=== PATIENT | female | born 1935 | race Caucasian/White ===

== ENCOUNTER 2017-08-07 09:30 | Inpatient (IN) | payer OTHER ==
[~2017-08-07] VITALS: Ht 162.6 cm; Wt 67.7 kg
[~2017-08-07 09:30] MED LIST: CALCIUM CARBON600 M1 PO; CYCLOBENZAPRINE10 M1 PO; ESCITALOPRAM OX20 MG PO; LEVSIN0.125 M1 PO; LOPRESSOR50 M1 PO; METFORMIN HCL500 M2 PO; MIRTAZAPINE45 M1 PO; MULTIVITAMIN1 TAB PO; PRINIVIL10 M1 PO; PROTONIX40 M3 PO; QVAR8.7 G1 INH; SIMVASTATIN20 M2 PO; VIMOVO DR 500-1 EACH PO
[2017-08-07 10:37] LABS: ABSOLUTE BASOPHIL COUNT 0 /CUMM (0.0-0.2); ABSOLUTE EOSINOPHIL COUNT 0.2 /CUMM (0.0-0.7); ABSOLUTE GRANULOCYTE CT 7.8 /CUMM (1.4-6.5); ABSOLUTE MONOCYTE COUNT 0.7 /CUMM (0.10-0.60); BASOPHIL % 0.4 % (0.0-2.0); EOSINOPHIL % 1.4 % (0-5); GRANULOCYTE % 72.3 % (42.2-75.2); HEMATOCRIT 40.4 % (37-47); MEAN CORPUSCULAR HGB 31.1 PG (27.0-31.0); MEAN CORPUSCULAR HGB CONC 32.9 G/DL (33.0-37.0); MEAN CORPUSCULAR VOLUME 94.5 FL (81.0-99.0); MEAN PLATELET VOLUME 7.4 FL (7.4-10.4); PLATELET COUNT 386 /CUMM (130-400); RBC DISTRIBUTION WIDTH 13.9 % (11.5-14.5); RED BLOOD CELL CT 4.28 /CUMM (4.20-5.40); WHITE BLOOD CELL COUNT 10.8 /CUMM (4.8-10.8)
--- NOTE | 2017-08-07 12:12 | ED AMS/SEIZURE/WEAK/DIZZY ---
History of Present Illness General Chief Complaint: General Adult Stated Complaint: WEAKNESS XS 3 WEEKS Source: patient, family Exam Limitations: no limitations Allergies Coded Allergies: Penicillins (Mild, RASH 06/25/15) Reconcile Medications Beclomethasone Dipropionate (QVAR) 80 MCG AER.W.ADAP 2 PUF INH BID SOB Buspirone HCl 5 MG TABLET 1 TAB PO BID depression (Reported) Calcium (Elemental-Fr Calcarb) (Calcium Carbonate) 600 MG CALCIUM (1,500 MG) TABLET 1 TAB PO DAILY OSTEOPOROSIS Cyclobenzaprine HCl 10 MG TABLET 1 TAB PO TID PAIN Escitalopram Oxalate 20 MG TABLET 1 TAB PO DAILY DEPRESSION (Reported) Hyoscyamine (Levsin) 0.125 MG TABLET 1 TAB PO TID IBS (Reported) Lisinopril (Prinivil) 10 MG TABLET 1 TAB PO DAILY HTN (Reported) Magnesium Oxide 400 MG TABLET 1 TAB PO DAILY hypomagnesemia . Metformin HCl (Metformin HCl ER) 500 MG TAB.ER.24 1 TAB PO BID DM (Reported) Metoprolol Tartrate (Lopressor) 50 MG TABLET 0.5 TAB PO BID HTN (Reported) Mirtazapine 45 MG TABLET 1 TAB PO QPM DEPRESSION (Reported) Naproxen/Esomeprazole Mag (Vimovo Dr 500-20 MG Tablet) 500 MG-20 MG TAB.IR.DR 1 TAB PO BID PAIN (Reported) Pantoprazole Sodium (Protonix) 40 MG TABLET.DR 1 TAB PO DAILY GERD (Reported) Simvastatin (Simvastatin*) 20 MG TABLET 1 TAB PO QPM HYPERLIPIDEMIA (Reported ) Triage Note: SAW DR DAVID A FEW WEEKS AGO FOR A COUGH. STATES SHE COULDN'T HEAR OUT OF RIGHT EAR AND SHE FELT OFF BALANCE. THAT WAS ALL TAKEN CARE OF. PT STATES SHE HAS BEEN VERY WEAK FOR ABOUT A MONTH, HASN'T BEEN EATING RIGHT, VERY NEVOUS AND DEPRESSED. SLOWER THEN USUAL MOVING AROUND. DENIES CP/SOB. NEUROS INTACT IN TRIAGE. DAUGHTER STATES MOTHERS MEMORY IS WORSE AND SHE IS WONDERING IF SHE MIGHT HAVE HAD A MINI STROKE AGAIN Triage Nurses Notes Reviewed? yes Onset: Gradual Duration: week(s): Timing: recent history Injury Environment: home Severity: moderate HPI: 82-year-old female with history of prior CVA, HTN, DM presents emergency department complaining of generalized weakness 3 weeks. Patient also reports abnormal sensation in her head, described as "something doesn't feel right". Patient states that at times when she gets up from sitting or when she walks she feels as though she may pass out. Patient lives at home alone however her daughter lives across the street. Patient denies chest pain, dyspnea, abdominal pain, vomiting, diarrhea, syncope, visual changes, headache, fall, head trauma. (Gisele DE LUNA,Alena Yuan) Vital Signs & Intake/Output Vital Signs & Intake/Output Vital Signs Date Time Temp Pulse Resp B/P B/P Pulse O2 O2 Flow FiO2 Mean Ox Delivery Rate 08/09 0917 84 120/70 08/09 0600 97.1 66 20 112/80 96 Room Air 08/08 2253 75 108/60 08/08 2124 97.6 75 20 108/60 94 / 1950 Room Air 08/08 1925 98.2 93 18 110/66 93 ED Intake and Output 08/09 0000 08/08 1200 Intake Total 480 Output Total Balance 480 Intake, IV 0 Intake, Oral 480 Patient 149 lb Weight Weight Bed scale Measurement Method (Ashia LARIOS,Luis Felipe Morales) Past History Travel History Traveled to [place] past 21 day No Medical History Any Pertinent Medical History? 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 No (Alena Allison) Review of Systems Review of Systems Constitutional: Reports: see HPI. EENTM: Reports: no symptoms. Respiratory: Reports: no symptoms. Cardiovascular: Reports: no symptoms. GI: Reports: no symptoms. Genitourinary: Reports: no symptoms. Musculoskeletal: Reports: no symptoms. Skin: Reports: no symptoms. Neurological/Psychological: Reports: see HPI. Hematologic/Endocrine: Reports: no symptoms. Immunologic/Allergic: Reports: no symptoms. All Other Systems: Reviewed and Negative (Gisele DE LUNA,Alena Yuan) Physical Exam Physical Exam General Appearance: well developed/nourished, no apparent distress, alert, awake Head: atraumatic, normal appearance Eyes: Bilateral: normal appearance. Ears, Nose, Throat: normal pharynx, normal ENT inspection, hearing grossly normal Neck: normal inspection, supple, full range of motion Respiratory: normal breath sounds, no respiratory distress, lungs clear Cardiovascular: regular rate/rhythm, normal peripheral pulses Peripheral Pulses: 2+ radial (R), 2+ radial (L) Gastrointestinal: normal bowel sounds, soft, non-tender, no organomegaly Back: normal inspection, normal range of motion Extremities: normal range of motion Neurologic/Psych: awake, alert, oriented x 3, histopathologist II-XII nml as tested Skin: intact, normal color, warm/dry Core Measures ACS in differential dx? Yes CVA/TIA Diagnosis No Sepsis Present: No Sepsis Focused Exam Completed? No (Gisele DE LUNA,Alena Yuan) Progress Differential Diagnosis: arrythmia, anemia, benign positional vertigo, CVA/stroke , dehydration, drug intoxication, encephalitis, electrolyte imbalance, hypoglycemia, intracranial Hem., intracranial mass/tumor, pneumonia, postural hypotension Diagnostic Imaging: Viewed by Me: Radiology Read. Discussed w/RAD: Radiology Read. CXR Impression: PATIENT: LAMAR CARROLL PRESENT AGE: 82 PATIENT ACCOUNT NO: [id number] : 33 LOCATION: [facility] ORDERING PHYSICIAN: Alena DE LUNA SERVICE DATE: 08/07/17 EXAM TYPE: RAD - XRY-CHEST XRAY, TWO VIEWS EXAMINATION: XR CHEST CLINICAL INFORMATION: Weakness with previous URI symptoms. Rule out pneumonia, congestion. COMPARISON: Several prior chest x-rays, most recent of which is dated 05/23/2012. CT scan of the abdomen and pelvis dated 04/03/2015. TECHNIQUE: 2 views of the chest were obtained. FINDINGS: The cardiac silhouette is within normal limits in size. Calcification of the aortic arch is seen. Mediastinum is enlarged due to herniation of the stomach into the lower chest, similar to previous CT scan. Lungs bilaterally are hyperinflated, consistent with obstructive lung disease. No focal consolidation, effusion or pneumothorax is seen. Diffuse osteopenia is noted with multilevel mild vertebral spondylosis. IMPRESSION: 1. Large retrocardiac hiatal hernia shown on prior CT scan to contain almost the entire stomach and associated fat. 2. Obstructive lung disease. No focal pulmonary process seen. DICTATED BY: Regine Evangelista MD DATE/TIME DICTATED:08/07/171321 COMPTOMETER OPERATOR:MATTHIAS DATE /TIME TRANSCRIBED:08/07/171321 CONFIDENTIAL, DO NOT COPY WITHOUT APPROPRIATE AUTHORIZATION. <Electronically signed in Other Vendor System> SIGNED BY: Regine Evangelista MD 08/07/17 1330 Initial ED EKG: SINUS RHYTHM @73BPM, SLIGHT PEAKED T WAVES V2 Prior EKG: changed (04/03/15) (Gisele DE LUNA,Alena Yuan) Plan of Care: Orders Procedure Date/time Status MAGNESIUM 08/09 599 Complete CBC WITHOUT DIFFERENTIAL 08/09 599 Complete BASIC ELECTROLYTES PLUS BUN&CR 08/09 599 Complete Discharge Patient 08/09 UNK Active Laboratory Tests 08/09/17 0635: Anion Gap 12, Estimated GFR 43 L, BUN/Creatinine Ratio 16.7, Magnesium 1.4 L, CBC w Diff NO MAN DIFF REQ, RBC 4.00 L, MCV 95.7, MCH 31.5 H, MCHC 32.9 L, RDW 14.0, MPV 7.7, Gran % 59.4, Lymphocytes % 28.9, Monocytes % 8.3, Eosinophils % 2.9, Basophils % 0.5, Absolute Granulocytes 4.8, Absolute Lymphocytes 2.3, Absolute Monocytes 0.7 H, Absolute Eosinophils 0.2, Absolute Basophils 0 Patient has mild hyperkalemia and hypomagnesmia. She also has LANE. Patient has subtle t wave changes on her EKG. Given abnormal blood work in setting of weakness and presyncope she requires hospital admission. Spoke with case managment who recommend full admission. Dr. Ang evaluated the patient, he spoke with hospitalist regarding her telemetry admission. Patient requires IV fluids, electrolyte replacement, repeat labs. (Gisele DE LUNA,Alena Yuan) Comments: 08/07/2017 5:43:58 PM I discussed this patient's case with Dr. David. (Ashia LARIOS,Luis Felipe Morales) Departure Departure Disposition: STILL A PATIENT Condition: Stable Clinical Impression Primary Impression: Hyperkalemia Secondary Impressions: Acute electrocardiogram changes, Acute kidney injury, Hypomagnesemia Referrals: Tushar David MD (PCP/Family) Departure Forms: Customer Survey General Discharge Information Prescriptions: Current Visit Scripts Magnesium Oxide 1 TAB PO DAILY #7 TAB . Beclomethasone Dipropionate (QVAR) 2 PUF INH BID 30 Days Calcium (Elemental-Fr Calcarb) (Calcium Carbonate) 1 TAB PO DAILY #30 TAB Cyclobenzaprine HCl 1 TAB PO TID #15 TAB Admission Note Spoke With: Tushar David MD Documentation of Exam: Documentation of any treatments & extenuating circumstances including Concerns Regarding Discharge (functional status, medication knowledge or non-compliance, living conditions, etc.) that warrant an admission rather than observation: [ Acute kidney injury with electrolyte abnormalities requiring repeat labs, IV fluids, electrolyte replacement, subtle T-wave changes on EKG or cardiac repeat EKGs, telemetry monitoring, repeat troponins, weakness requiring possible physical therapy consult, case management consult prior to discharge for possible home health services, premature discharge medically unsafe] (Gisele DE LUNA,Alena Yuan) PA/EMERGENCY ROOM PHYSICIAN Co-Sign Statement Statement: ED Attending supervision documentation- [X] I saw and evaluated the patient. I have also reviewed all the pertinent lab results and diagnostic results. I agree with the findings and the plan of care as documented in the PA's/EMERGENCY ROOM PHYSICIAN's documentation. Patient presents for evaluation of "not feeling right" with generalized weakness. Physical examination reveals a comfortable and conversant appearing woman with a nonfocal neurologic examination. Affect appears normal. [] I have reviewed the ED Record and agree with the PA's/EMERGENCY ROOM PHYSICIAN's documentation. [] Additions or exceptions (if any) to the PAs/EMERGENCY ROOM PHYSICIAN's note and plan are summarized below: [] (Ashia LARIOS,Luis Felipe Morales)
--- NOTE | 2017-08-07 13:30 | RADIOLOGY REPORT ---
EXAMINATION: XR CHEST CLINICAL INFORMATION: Weakness with previous URI symptoms. Rule out pneumonia, congestion. COMPARISON: Several prior chest x-rays, most recent of which is dated 05/23/2012. CT scan of the abdomen and pelvis dated 04/03/2015. TECHNIQUE: 2 views of the chest were obtained. FINDINGS: The cardiac silhouette is within normal limits in size. Calcification of the aortic arch is seen. Mediastinum is enlarged due to herniation of the stomach into the lower chest, similar to previous CT scan. Lungs bilaterally are hyperinflated, consistent with obstructive lung disease. No focal consolidation, effusion or pneumothorax is seen. Diffuse osteopenia is noted with multilevel mild vertebral spondylosis. IMPRESSION: 1. Large retrocardiac hiatal hernia shown on prior CT scan to contain almost the entire stomach and associated fat. 2. Obstructive lung disease. No focal pulmonary process seen.
--- NOTE | 2017-08-07 14:02 | CT SCAN REPORT ---
EXAMINATION: CT HEAD WITHOUT CONTRAST CLINICAL INFORMATION: History of stroke with funny sensation in head. Assess for intracranial hemorrhage. COMPARISON: CT scan of the head 03/10/2010. TECHNIQUE: Contiguous axial imaging was performed from the skull base to vertex without intravenous administration of contrast. DLP: 695.06 mGy-cm FINDINGS: There is no evidence of acute intracranial hemorrhage or territorial infarction. No abnormal mass effect or midline shift is seen. Collins to white matter differentiation is well preserved. No extra-axial fluid collections are identified. There is progressive commensurate prominence of the ventricles and sulci consistent with diffuse volume loss. There is an area of low attenuation in the right parietal region, likely consistent with sequelae of an old infarct. In addition, there are patchy areas of low attenuation in the periventricular and subcortical white matter consistent with chronic microvascular ischemic disease. There have been bilateral lens extractions, demonstrated on prior imaging. The study redemonstrates atheromatous calcifications of the bilateral vertebral and cavernous internal carotid arteries. The osseous structures and soft tissues are normal. The mastoid air cells and visualized portions of the paranasal sinuses are well aerated. The nasal septum is deviated to the left and there is a prominent left-sided bony nasal septal spur, unchanged. IMPRESSION: 1. There are no acute bleeds or territorial infarcts. 2. There is progressive diffuse volume loss and there are chronic microvascular ischemic changes. There are likely sequelae of an old infarct in the right parietal region.
--- NOTE | 2017-08-07 17:12 | History & Physical ---
Juanpablo Dumont MD 08/07/17 4011: General Information and HPI MD Statement: I have seen and personally examined LAMAR CARROLL and documented this H&P. The patient is a 82 year old F who presented with a patient stated chief complaint of [fatigue, malaise, diarrhea]. Source of Information: patient, family, old records Exam Limitations: poor historian History of Present Illness: Patient is an 82-year-old female with a PMH significant for COPD, diabetes mellitus, hypertension, hyperlipidemia, osteoarthritis with chronic back pain, anxiety, depression who presents to the [facility] ED with vague complaints of not feeling herself, malaise, diarrhea and fatigue. She reports that approximately one month ago she had URI-like symptoms and was treated with a short course of azithromycin. Her symptoms resolved, but she is feeling weak, malaise, faustin, and fatigue. She has been having poor PO intake during this time, and reports occasional lightheadedness upon standing. She had difficulty describing her symptoms. However she did admit to having diarrhea approximately every other day for the past week and a half to 2 weeks. Review of systems she endorsed some tingling of her hands intermittently but denied any chest pain, nausea, vomiting, fever, chills, shortness of breath. Allergies/Medications Allergies: Coded Allergies: Penicillins (Mild, RASH 06/25/15) Home Med list Beclomethasone Dipropionate (QVAR) 80 MCG AER.W.ADAP 2 PUF INH BID SOB Buspirone HCl 5 MG TABLET 1 TAB PO BID depression (Reported) Calcium (Elemental-Fr Calcarb) (Calcium Carbonate) 600 MG CALCIUM (1,500 MG) TABLET 1 TAB PO DAILY OSTEOPOROSIS Cyclobenzaprine HCl 10 MG TABLET 1 TAB PO TID PAIN Escitalopram Oxalate 20 MG TABLET 1 TAB PO DAILY DEPRESSION (Reported) Hyoscyamine (Levsin) 0.125 MG TABLET 1 TAB PO TID IBS (Reported) Lisinopril (Prinivil) 10 MG TABLET 1 TAB PO DAILY HTN (Reported) Magnesium Oxide 400 MG TABLET 1 TAB PO DAILY hypomagnesemia . Metformin HCl (Metformin HCl ER) 500 MG TAB.ER.24 1 TAB PO BID DM (Reported) Metoprolol Tartrate (Lopressor) 50 MG TABLET 0.5 TAB PO BID HTN (Reported) Mirtazapine 45 MG TABLET 1 TAB PO QPM DEPRESSION (Reported) Naproxen/Esomeprazole Mag (Vimovo Dr 500-20 MG Tablet) 500 MG-20 MG TAB.IR.DR 1 TAB PO BID PAIN (Reported) Pantoprazole Sodium (Protonix) 40 MG TABLET.DR 1 TAB PO DAILY GERD (Reported) Simvastatin (Simvastatin*) 20 MG TABLET 1 TAB PO QPM HYPERLIPIDEMIA (Reported ) Past History Travel History Traveled to [place] past 21 day No Medical History Neurological: CVA SLIGHT L WEAKNESS EENT: cataracts, macular degeneration Cardiovascular: hypertension, hyperlipidemia Respiratory: pneumonia Gastrointestinal: lower GI bleed, ACID REFLUX ischemic colitis Hepatic: NONE Renal: NONE Musculoskeletal: chronic back pain Psychiatric: depression Endocrine: diabetes Blood Disorders: NONE Cancer(s): 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 Home Who Do You Live With? self Services at Home: None Primary Language: Romanian Smoking Status: Former Smoker ETOH Use: denies use, former heavy use Illicit Drug Use: denies illicit drug use Functional Ability Ambulation: cane Review of Systems Review of Systems Constitutional: Reports: malaise, weakness. Denies: chills, fever. EENTM: Reports: no symptoms. Cardiovascular: Denies: chest pain, palpitations, syncope. Respiratory: Denies: cough, short of breath. GI: Reports: see HPI, diarrhea. Denies: melena, nausea, bloody stool, vomiting. Genitourinary: Reports: no symptoms. Musculoskeletal: Reports: back pain. Skin: Reports: no symptoms. Neurological/Psychological: Reports: no symptoms. Exam & Diagnostic Data Last 24 Hrs of Vital Signs/I&O Vital Signs Date Time Temp Pulse Resp B/P B/P Pulse O2 O2 Flow FiO2 Mean Ox Delivery Rate 08/07 1835 97.4 80 18 152/72 96 08/07 1300 96.2 80 167/78 08/07 1148 75 128/73 08/07 1117 97.0 76 108/70 08/07 0938 97.6 72 20 132/74 96 Room Air Intake & Output 08/07 1600 08/07 0800 08/07 0000 Intake Total 0 Output Total Balance 0 Intake, Oral 0 Patient 160 lb Weight Weight Reported by Patient Measurement Method Physical Exam General Appearance Alert, Oriented X3, Cooperative, No Acute Distress Skin Temp/Moisture Exam: Warm/Dry Sepsis Skin Exam (color): Normal for Ethnicity HEENT Atraumatic, PERRLA, EOMI, dry mucous membranes Cardiovascular Regular Rate, Normal S1, Normal S2 Lungs Clear to Auscultation, Normal Air Movement Abdomen Normal Bowel Sounds, Soft, No Tenderness Neurological Normal Speech, Strength at 5/5 X4 Ext, Sensation Intact, Cranial Nerves 3-12 NL Extremities No Clubbing, No Cyanosis, No Edema Last 24 Hrs of Labs/Jono: Laboratory Tests 08/07/17 1020: Anion Gap 17 H, Estimated GFR 29 L, BUN/Creatinine Ratio 21.2, Glucose 112 H, Calcium 9.7, Magnesium 1.0 L, Total Bilirubin 0.7, AST 13 L, ALT 23, Alkaline Phosphatase 71, Troponin I < 0.01, Total Protein 7.2, Albumin 4.2, Globulin 3.0, Albumin/Globulin Ratio 1.4, CBC w Diff NO MAN DIFF REQ, RBC 4.28, MCV 94.5, MCH 31.1 H, MCHC 32.9 L, RDW 13.9, MPV 7.4, Gran % 72.3, Lymphocytes % 19.0 L, Monocytes % 6.9, Eosinophils % 1.4, Basophils % 0.4, Absolute Granulocytes 7.8 H, Absolute Lymphocytes 2.0, Absolute Monocytes 0.7 H, Absolute Eosinophils 0.2 , Absolute Basophils 0 Diagnostic Data EKG Results SR, HR 73, QTc 424, elevated T waves compared to previous Assessment/Plan Assessment: Patient is an 82-year-old female with a PMH significant for COPD, diabetes mellitus, hypertension, hyperlipidemia, osteoarthritis with chronic back pain, anxiety, depression who presents to the [facility] ED with vague complaints of not feeling herself, malaise, diarrhea and fatigue. Patient had poor by mouth intake has labs INDICATIVE of a care likely prerenal. She also has mild hyperkalemia with T wave changes on EKG. Problem list #LANE, likely pre-renal. #Mild hyperkalemia with T wave changes on EKG #Hypomagnesemia #Chronic medical problems including diabetes mellitus, HTN, HLD, depression, anxiety, GERD. Plan -Admit to telemetry -Continuous telemetry monitoring -IV fluid rehydration -Follow-up BEP and EKG in a.m. -AM consult with cardiology -Continue home medications -Accu-Cheks 3 times a day before meals, at bedtime with low-dose NovoLog sliding scale Diet: Diabetic diet DVT prophylaxis: SC heparin, ALPS CODE STATUS: DNR/DNI As Ranked By This Provider Problem List: 1. Acute kidney injury 2. Acute electrocardiogram changes Core Measures/Misc (01/06) Acute Coronary Syndrome ACS Diagnosis: No Congestive Heart Failure Congestive Heart Failure Diagnosis No Cerebrovascular Accident CVA/TIA Diagnosis: No VTE (View Protocol) VTE Risk Factors Age>40 No Mechanical VTE Prophylaxis d/t N/A MechProphylax Ordered No VTE Pharm Prophylaxis d/t NA PharmProphylax ordered Sepsis (View protocol) Sepsis Present: No Justus Barrett MD 08/07/172121: Resident Review Statement Resident Statement: examined this patient, discussed with quality intern, agreed with quality intern, discussed with family Other Findings: This is an 82 yo female with PMH of COPD, diabetes mellitus, hypertension, hyperlipidemia ,ischemic colitis, LGIB, anxiety and depression who comes for CC of "not feeling myself." She had a difficult time in describing exactly why she came to ED but describes a month long course of malaise, and fatigue. Pt states the vague symptoms have worsened over hte past 1.5 weeks until she felt like she had to come to the hospital today. She does endorse poor PO intake and diarrhea on an every other day basis for the past two weeks. Family at bedside endorsed that pt was "more depressed and cranky" over the past few days. Patient denies any headache, nausea vomiting, chest pain, fevers, chills shortness of breath. She does endorse some light-headedness. Phys exam as above Assessment: This is a 82 yo female with PMH of COPD, diabetes mellitus, hypertension, hyperlipidemia ,ischemic colitis, LGIB, anxiety and depression who comes in with non-specific complaints of malaise and fatigue in context of increased depression and more frequent episodes of diarrhea. On admission she is found to have LANE and corresponding metabolic disturbances including hyperkalemia and hypomagnesemia with a mild anion gap and an EKG with some peaked T-waves. Possible etiology of renal failure includes pre-renal state due to poor po intake or increased diarrhea in addition to role of superimposed ACEi and metformin. Will admit to telemetry for further monitoring and work up. PLAN: 1. Hyperkalemia: K is 5.4 likely due to renal failure. Her EKG seems to have some peaked t waves in comparison to previous ekg. * Con't monitor K * No pharmacologic intervention yet * Con't monitor on tele * Consider AM consult with cardiology per Dr. David 2. Anion gap: Gap is 17. Likely secondary to renal failure. * Con't monitor 3. Renal failure: Cr is 1.7. On Sep 2015 it was 1.2. Likely pre-renal etiology. If continues to worsen consider renal US. * Hydrate * Con't monitor * Hold lisinopril * Note pt is on metformin at home. Will need to revisit this medication on discharge to note if her creatinine improves and if she can be d/c on med. * UA 4. Hypo-Mag: Mag is 1. Pt does c/o diarrhea * Replete * Hold PPI as it can exacerbate low mag 5. Depression: Pt c/o worsening symptoms of depression. No suicidality. She is on quite large doses of antidepressants and is quite sure about her doses. However we asked pt to bring med bottles in for tomorrow for a second confirmation. * Con't Mirtazapine 45mg * Con't Escitalopram 20mg * Con't Buspar * Psych consult in AM * PT consult 6. DM: * RISS * FS * CC diet 7. HTN: * Cont' home Lopressor 8. HLD: * Con't statin FC Chem ppx Reg diet Reg diet
--- NOTE | 2017-08-07 19:03 | Admission Certification ---
Admission Certification Certification Statement - As attending physician, I certify that at the time of - admission, based on clinical presentation, severity of - symptoms, need for further diagnostic testing and - therapeutic interventions, and risk of adverse outcomes - without in-hospital treatment, in my clinical assessment, - this patient requires an acute hospital stay for a minimum - of two nights or longer. I have also considered psychsocial - factors such as support system, advanced age, financial - issues, cognitive issues, and failed out-patient treatments, - past re-admission history, safety of patient, and lack of - compliance as applicable. Specific rationale supporting this admission is: Weakness, diarrhea MRI acute kidney insufficiency or dehydration hyperkalemia, hypermagnesemia
--- NOTE | 2017-08-07 19:07 | PN- Att Addend ---
Attending Addendum Attending Brief Note 82-year-old white female not feeling well the last few days recently treated for an upper respiratory infection with the azithromycin patient apparently not drinking much fluids per daughter also feeling weak progressively worse has had some diarrhea she comes to the emergency room on to have low magnesium, high potassium acute kidney insufficiency. Patient got some IV fluids and the daughter thinks after half a pack that she has perked up a little bit. Will admit, continue IV fluids repeat the blood work in the morning get a PT evaluation Current Medications Sig/Jv Start time Last Medication Dose Route Stop Time Status Admin Acetaminophen 650 MG Q6P PRN 08/07 183 AC PO Enoxaparin Sodium 40 MG DAILY 08/08 0900 CANr SC Heparin Sodium 5,000 UNIT Q8 08/07 2200 UNVr (Porcine) SC Ibuprofen 600 MG Q6P PRN 08/07 1830 DCr PO Magnesium Sulfate 1 GM ONCE ONE 08/07 1315 DC 08/07 Dextrose/Water 100 ML IV 08/07 1714 1352 Oxycodone/ 2 TAB Q6P PRN 08/07 183 AC Acetaminophen PO Sodium Chloride 1,000 ML ONCE ONE 08/07 1315 AC 08/07 IV 08/07 2114 1352 Laboratory Tests 08/07/17 1020: Anion Gap 17 H, Estimated GFR 29 L, BUN/Creatinine Ratio 21.2, Glucose 112 H, Calcium 9.7, Magnesium 1.0 L, Total Bilirubin 0.7, AST 13 L, ALT 23, Alkaline Phosphatase 71, Troponin I < 0.01, Total Protein 7.2, Albumin 4.2, Globulin 3.0, Albumin/Globulin Ratio 1.4, CBC w Diff NO MAN DIFF REQ, RBC 4.28, MCV 94.5, MCH 31.1 H, MCHC 32.9 L, RDW 13.9, MPV 7.4, Gran % 72.3, Lymphocytes % 19.0 L, Monocytes % 6.9, Eosinophils % 1.4, Basophils % 0.4, Absolute Granulocytes 7.8 H, Absolute Lymphocytes 2.0, Absolute Monocytes 0.7 H, Absolute Eosinophils 0.2 , Absolute Basophils 0
[2017-08-07] MEDS ORDERED: BUSPIRONE HCL5 M1 PO (22:11)
[2017-08-07] MEDS ORDERED: QVAR8.7 G1 INH (22:13)
[2017-08-07] MEDS ORDERED: CALCIUM CARBON600 M1 PO (22:13)
[2017-08-07] MEDS ORDERED: CYCLOBENZAPRINE10 M1 PO (22:13)
[2017-08-08 06:26] LABS: ABSOLUTE BASOPHIL COUNT 0 /CUMM (0.0-0.2); ABSOLUTE EOSINOPHIL COUNT 0.2 /CUMM (0.0-0.7); ABSOLUTE GRANULOCYTE CT 7.8 /CUMM (1.4-6.5); ABSOLUTE LYMPH COUNT 3.2 /CUMM (1.2-3.4); ABSOLUTE MONOCYTE COUNT 0.7 /CUMM (0.10-0.60); BASOPHIL % 0.2 % (0.0-2.0); EOSINOPHIL % 2.1 % (0-5); GRANULOCYTE % 65.2 % (42.2-75.2); HEMATOCRIT 40.2 % (37-47); MEAN CORPUSCULAR HGB 31.5 PG (27.0-31.0); MEAN CORPUSCULAR HGB CONC 33.2 G/DL (33.0-37.0); MEAN CORPUSCULAR VOLUME 94.9 FL (81.0-99.0); MEAN PLATELET VOLUME 7.3 FL (7.4-10.4); PLATELET COUNT 352 /CUMM (130-400); RED BLOOD CELL CT 4.24 /CUMM (4.20-5.40)
--- NOTE | 2017-08-08 07:23 | PN- Housestaff ---
Subjective Follow-up For: hyperkalemia Hypomagnesemia LANE Tele-Events Since Last Visit: no overnight events Subjective: Patient was seen and examined at bedside. She was resting comfortably in bed. She had no acute events overnight. She is feeling well today, significantly improved from yesterday. She has not had any repeat episodes of diarrhea. And she states that she feels that her strength is improving. She offers no new complaints and even reports improvement of her mood overall. She does have some mild soreness of her back, which is chronic. Review of Systems Constitutional: Denies: chills, fever. EENTM: Reports: no symptoms. Cardiovascular: Reports: no symptoms. Respiratory: Reports: no symptoms. Gastrointestinal: Reports: no symptoms. Genitourinary: Reports: no symptoms. Musculoskeletal: Reports: see HPI, back pain. Objective Last 24 Hrs of Vital Signs/I&O Vital Signs Date Time Temp Pulse Resp B/P B/P Pulse O2 O2 Flow FiO2 Mean Ox Delivery Rate 08/08 0607 97.4 95 18 128/63 96 Room Air 08/07 2222 97.7 75 18 134/76 97 Room Air 08/07 1835 97.4 80 18 152/72 96 08/07 1300 96.2 80 167/78 08/07 1148 75 128/73 08/07 1117 97.0 76 108/70 08/07 0938 97.6 72 20 132/74 96 Room Air Intake & Output 08/08 0800 08/08 0000 08/07 1600 Intake Total 0 Output Total Balance 0 Intake, Oral 0 Patient 160 lb 160 lb Weight Weight Reported by Patient Reported by Patient Measurement Method Physical Exam General Appearance: Alert, Oriented X3, Cooperative, No Acute Distress Skin Temp/Moisture Exam: Warm/Dry Cardiovascular: Regular Rate, Normal S1, Normal S2 Lungs: Clear to Auscultation, Normal Air Movement Abdomen: Normal Bowel Sounds, Soft, No Tenderness Neurological: Normal Speech, Normal Tone, Sensation Intact Extremities: No Clubbing, No Cyanosis, No Edema Current Medications: Current Medications Sig/Jv Start time Last Medication Dose Route Stop Time Status Admin Acetaminophen 650 MG Q6P PRN 08/07 1830 AC PO Atorvastatin Calcium 10 MG 1700 08/08 1700 AC PO Atorvastatin Calcium 10 MG 1700 08/08 1700 CAN PO Buspirone HCl 5 MG BID 08/08 0900 AC PO Cyclobenzaprine HCl 10 MG TID PRN 08/07 2115 DC PO Enoxaparin Sodium 40 MG DAILY 08/08 09 CAN SC Escitalopram Oxalate 20 MG DAILY 08/08 09 AC PO Escitalopram Oxalate 20 MG DAILY 08/08 0900 CAN PO Heparin Sodium 0 .STK-MED ONE 08/08 06 DC (Porcine) .ROUTE Heparin Sodium 5,000 UNIT Q8 08/07 2200 AC 08/08 (Porcine) SC 06 Ibuprofen 600 MG Q6P PRN 08/07 1830 DC PO Insulin Aspart 0 AT BEDTIME 08/08 2100 AC SC Insulin Aspart 0 TIDAC 08/08 08 AC SC Lisinopril 10 MG DAILY 08/08 09 CAN PO Magnesium Oxide 400 MG DAILY 08/08 09 AC PO Magnesium Sulfate 1 GM ONCE ONE 08/07 1315 DC 08/07 Dextrose/Water 100 ML IV 08/07 1714 1352 Metoprolol Tartrate 25 MG BID 08/08 09 CAN PO Metoprolol Tartrate 25 MG BID 08/08 09 AC PO Mirtazapine 30 MG AT BEDTIME 08/08 2099 AC PO Mirtazapine 45 MG DAILY 08/08 09 CAN PO Omeprazole 40 MG DAILY AC 08/08 0700 CAN PO Oxycodone/ 2 TAB Q6P PRN 08/07 183 AC Acetaminophen PO Sodium Chloride 1,000 ML ONCE ONE 08/07 1315 DC 08/07 IV 08/07 2114 1352 Last 24 Hrs of Lab/Jono Results Last 24 Hrs of Labs/Mics: Laboratory Tests 08/08/1715: Anion Gap 12, Estimated GFR 43 L, BUN/Creatinine Ratio 22.5, Magnesium 1.4 L, CBC w Diff NO MAN DIFF REQ, RBC 4.24, MCV 94.9, MCH 31.5 H, MCHC 33.2, RDW 14.0 , MPV 7.3 L, Gran % 65.2, Lymphocytes % 26.3, Monocytes % 6.2, Eosinophils % 2.1, Basophils % 0.2, Absolute Granulocytes 7.8 H, Absolute Lymphocytes 3.2, Absolute Monocytes 0.7 H, Absolute Eosinophils 0.2, Absolute Basophils 0 08/07/175: Urine Color YEL, Urine Clarity CLEAR, Urine pH 6.0, Ur Specific [place] <= 1.005 , Urine Protein NEG, Urine Ketones NEG, Urine Nitrite POS H, Urine Bilirubin NEG, Urine Urobilinogen 0.2, Ur Leukocyte Esterase MOD H, Ur Microscopic SEDIMENT EXAMINED, Urine RBC RARE, Urine WBC 25-50 H, Ur Epithelial Cells FEW, Urine Bacteria PACKD H, Urine Hemoglobin NEG, Urine Glucose NEG 08/07/17 1020: Anion Gap 17 H, Estimated GFR 29 L, BUN/Creatinine Ratio 21.2, Glucose 112 H, Calcium 9.7, Magnesium 1.0 L, Total Bilirubin 0.7, AST 13 L, ALT 23, Alkaline Phosphatase 71, Troponin I < 0.01, Total Protein 7.2, Albumin 4.2, Globulin 3.0, Albumin/Globulin Ratio 1.4, CBC w Diff NO MAN DIFF REQ, RBC 4.28, MCV 94.5, MCH 31.1 H, MCHC 32.9 L, RDW 13.9, MPV 7.4, Gran % 72.3, Lymphocytes % 19.0 L, Monocytes % 6.9, Eosinophils % 1.4, Basophils % 0.4, Absolute Granulocytes 7.8 H, Absolute Lymphocytes 2.0, Absolute Monocytes 0.7 H, Absolute Eosinophils 0.2 , Absolute Basophils 0 Orders EKG Findings: NSR, HR 96 Assessment/Plan Assessment: Patient is an 82-year-old female with a PMH significant for COPD, diabetes mellitus, hypertension, hyperlipidemia, osteoarthritis with chronic back pain, anxiety, depression who presents to the [place] ED with vague complaints of not feeling herself, malaise, diarrhea and fatigue. Patient had poor by mouth intake has labs INDICATIVE of a care likely prerenal. She also has mild hyperkalemia with T wave changes on EKG. #LANE, likely pre-renal. Improving with IV rehydration -We'll check orthostatic vital signs #Mild hyperkalemia Resolved, T-wave changes less pronounced today #Hypomagnesemia Continue oral repletion #Diarrhea, now with leukocytosis Very mild leukocytosis, patient has a history of colitis but diarrhea has resolved for now. #Chronic medical problems including diabetes mellitus, HTN, HLD, depression, anxiety, GERD. -Holding home lisinopril given a CAD -We'll consider psych consult for medicine reconciliation, patient is on high doses of the citalopram, mirtazapine which may have contributed to a care -Accu-Cheks 3 times a day before meals, at bedtime with low-dose NovoLog sliding scale Diet: Diabetic diet DVT prophylaxis: SC heparin, ALPS CODE STATUS: DNR/DNI Problem List: 1. Acute kidney injury 2. Hypomagnesemia 3. Hyperkalemia Pain Ratin Pain Location: back Pain Goal: Remain pain free Pain Plan: pain pathway Tomorrow's Labs & Rationales: BEP, Mg
[2017-08-08 08:00] VITALS: BP 118/59
--- NOTE | 2017-08-08 11:12 | PN- Att Addend ---
Attending Addendum Attending Brief Note Patient feeling better, sitting at edge of the bed alert oriented 3. Feels a little stronger Her vital signs are stable, no fever. No major changes on physical. Her labs show that her magnesium is improved but not yet normal also BUN and creatinine improved a little. Her potassium is better. Her UA is slightly abnormal, will get a urine culture. Continue gentle hydration monitoring her electrolytes and kidney function and also get a physical therapy evaluation. 24 TOTALS 08/08 0000 08/07 0000 Intake Total 0 Output Total Balance 0 Intake, Oral 0 Patient 160 lb Weight Weight Reported by Patient Measurement Method Current Medications Sig/Jv Start time Last Medication Dose Route Stop Time Status Admin Acetaminophen 650 MG Q6P PRN 08/07 1830 AC PO Atorvastatin Calcium 10 MG 1700 08/08 1700 AC PO Atorvastatin Calcium 10 MG 1700 08/08 1700 CAN PO Buspirone HCl 5 MG BID 08/08 0900 AC 08/08 PO 0903 Cyclobenzaprine HCl 10 MG TID PRN 08/08 0845 AC PO Cyclobenzaprine HCl 10 MG TID PRN 08/07 2115 DC PO Enoxaparin Sodium 40 MG DAILY 08/08 0900 CAN SC Escitalopram Oxalate 20 MG DAILY 08/08 0900 AC 08/08 PO 0903 Escitalopram Oxalate 20 MG DAILY 08/08 0900 CAN PO Heparin Sodium 0 .STK-MED ONE 08/08 06 DC (Porcine) .ROUTE Heparin Sodium 5,000 UNIT Q8 08/07 2200 AC 08/08 (Porcine) SC 0618 Ibuprofen 600 MG Q6P PRN 08/07 1830 DC PO Insulin Aspart 0 AT BEDTIME 08/08 2100 AC SC Insulin Aspart 0 TIDAC 08/08 0800 AC SC Lisinopril 10 MG DAILY 08/08 0900 CAN PO Magnesium Oxide 400 MG DAILY 08/08 0900 AC 08/08 PO 0903 Magnesium Sulfate 1 GM ONCE ONE 08/07 1315 DC 08/07 Dextrose/Water 100 ML IV 08/07 1714 1352 Metoprolol Tartrate 25 MG BID 08/08 0900 CAN PO Metoprolol Tartrate 25 MG BID 08/08 0900 AC 08/08 PO 0903 Mirtazapine 30 MG AT BEDTIME 08/08 2100 AC PO Mirtazapine 45 MG DAILY 08/08 09 CAN PO Omeprazole 40 MG DAILY AC 08/08 0700 CAN PO Oxycodone/ 2 TAB Q6P PRN 08/07 1830 AC Acetaminophen PO Sodium Chloride 1,000 ML ONCE ONE 08/07 1315 DC 08/07 IV 08/07 2114 1352 Laboratory Tests 08/08/17 0615: Anion Gap 12, Estimated GFR 43 L, BUN/Creatinine Ratio 22.5, Magnesium 1.4 L, CBC w Diff NO MAN DIFF REQ, RBC 4.24, MCV 94.9, MCH 31.5 H, MCHC 33.2, RDW 14.0 , MPV 7.3 L, Gran % 65.2, Lymphocytes % 26.3, Monocytes % 6.2, Eosinophils % 2.1, Basophils % 0.2, Absolute Granulocytes 7.8 H, Absolute Lymphocytes 3.2, Absolute Monocytes 0.7 H, Absolute Eosinophils 0.2, Absolute Basophils 0 08/07/17 2235: Urine Color YEL, Urine Clarity CLEAR, Urine pH 6.0, Ur Specific [place] <= 1.005 , Urine Protein NEG, Urine Ketones NEG, Urine Nitrite POS H, Urine Bilirubin NEG, Urine Urobilinogen 0.2, Ur Leukocyte Esterase MOD H, Ur Microscopic SEDIMENT EXAMINED, Urine RBC RARE, Urine WBC 25-50 H, Ur Epithelial Cells FEW, Urine Bacteria PACKD H, Urine Hemoglobin NEG, Urine Glucose NEG 08/07/17 1020: Anion Gap 17 H, Estimated GFR 29 L, BUN/Creatinine Ratio 21.2, Glucose 112 H, Calcium 9.7, Magnesium 1.0 L, Total Bilirubin 0.7, AST 13 L, ALT 23, Alkaline Phosphatase 71, Troponin I < 0.01, Total Protein 7.2, Albumin 4.2, Globulin 3.0, Albumin/Globulin Ratio 1.4, CBC w Diff NO MAN DIFF REQ, RBC 4.28, MCV 94.5, MCH 31.1 H, MCHC 32.9 L, RDW 13.9, MPV 7.4, Gran % 72.3, Lymphocytes % 19.0 L, Monocytes % 6.9, Eosinophils % 1.4, Basophils % 0.4, Absolute Granulocytes 7.8 H, Absolute Lymphocytes 2.0, Absolute Monocytes 0.7 H, Absolute Eosinophils 0.2 , Absolute Basophils 0 Vital Signs Date Time Temp Pulse Resp B/P B/P Pulse O2 O2 Flow FiO2 Mean Ox Delivery Rate 08/08 0903 97.7 86 18 118/59 08/08 0800 97.7 86 18 118/59 96 Room Air 08/08 0724 97.7 86 18 118/59 96 Room Air 08/08 0607 97.4 95 18 128/63 96 Room Air 08/07 2222 97.7 75 18 134/76 97 Room Air 08/07 1835 97.4 80 18 152/72 96 08/07 1300 96.2 80 167/78 08/07 1148 75 128/73 08/07 1117 97.0 76 108/70 White count slightly higher, would monitor
[2017-08-08 19:25] VITALS: BP 110/66
[2017-08-08 21:24] VITALS: BP 108/60
[2017-08-09 06:00] VITALS: BP 112/80
--- NOTE | 2017-08-09 07:22 | PN- Housestaff ---
Subjective Follow-up For: electrolyte imbalance LANE Tele-Events Since Last Visit: tachy to 100s briefly, otherwise NSR HR 60s-80s Subjective: Patient was seen and examined at bedside. She was resting comfortably. She had no acute events overnight. She complains of some loose stool overnight, however she had received magnesium oxide which can be a bowel stimulant. She continues to have mild lower back pain, which is chronic. She has no other complaints and continues to report that she is feeling better today. She reports feeling well enough to go home. Review of Systems Constitutional: Denies: chills, fever. EENTM: Reports: no symptoms. Cardiovascular: Reports: no symptoms. Respiratory: Reports: no symptoms. Gastrointestinal: Reports: no symptoms. Genitourinary: Reports: no symptoms. Musculoskeletal: Reports: back pain. Skin: Reports: no symptoms. Objective Last 24 Hrs of Vital Signs/I&O Vital Signs Date Time Temp Pulse Resp B/P B/P Pulse O2 O2 Flow FiO2 Mean Ox Delivery Rate 08/09 0600 97.1 66 20 112/80 96 Room Air 08/08 2253 75 108/60 08/08 2124 97.6 75 20 108/60 94 08/08 1950 Room Air 08/08 1925 98.2 93 18 110/66 93 08/08 1814 98.0 75 17 125/73 97 Room Air 08/08 1545 97.7 75 18 146/80 97 Room Air 08/08 1430 98.1 70 20 124/60 96 Room Air 08/08 0903 97.7 86 18 118/59 08/08 0800 97.7 86 18 118/59 96 Room Air 08/08 0724 97.7 86 18 118/59 96 Room Air Intake & Output 08/09 0800 08/09 0000 08/08 1600 Intake Total 120 120 360 Output Total 400 Balance -280 120 360 Intake, IV 0 Intake, Oral 120 120 360 Output, Urine 400 Patient 149 lb Weight Weight Bed scale Measurement Method Physical Exam General Appearance: Alert, Oriented X3, Cooperative, No Acute Distress Skin Temp/Moisture Exam: Warm/Dry Sepsis Skin Exam (color): Normal for Ethnicity Cardiovascular: Regular Rate, Normal S1, Normal S2 Lungs: Clear to Auscultation, Normal Air Movement Abdomen: Normal Bowel Sounds, Soft, No Tenderness Neurological: Normal Speech, Normal Tone, Sensation Intact Extremities: No Clubbing, No Cyanosis, No Edema Current Medications: Current Medications Sig/Jv Start time Last Medication Dose Route Stop Time Status Admin Acetaminophen 650 MG Q6P PRN 08/07 1830 AC PO Atorvastatin Calcium 10 MG 1700 08/08 1700 AC 08/08 PO 1720 Buspirone HCl 5 MG BID 08/08 0900 AC 08/08 PO 2253 Cyclobenzaprine HCl 10 MG TID PRN 08/08 0845 AC PO Escitalopram Oxalate 20 MG DAILY 08/08 0900 AC 08/08 PO 0903 Heparin Sodium 5,000 UNIT Q8 08/07 2200 AC 08/09 (Porcine) SC 0504 Insulin Aspart 0 AT BEDTIME 08/08 2100 AC SC Insulin Aspart 0 TIDAC 08/08 0800 AC SC Magnesium Oxide 400 MG DAILY 08/08 0900 AC 08/08 PO 0903 Metoprolol Tartrate 25 MG BID 08/08 0900 AC 08/08 PO 2253 Mirtazapine 30 MG AT BEDTIME 08/08 2100 AC 08/08 PO 2253 Oxycodone/ 2 TAB Q6P PRN 08/07 1830 AC Acetaminophen PO Last 24 Hrs of Lab/Jono Results Last 24 Hrs of Labs/Mics: Laboratory Tests 08/09/17 0635: Sodium Pending, Potassium Pending, Chloride Pending, Carbon Dioxide Pending, Anion Gap Pending, BUN Pending, Creatinine Pending, BUN/Creatinine Ratio Pending , Magnesium Pending, CBC w Diff Pending, WBC Pending, RBC Pending, Hgb Pending, Hct Pending, MCV Pending, MCH Pending, MCHC Pending, RDW Pending, Plt Count Pending, MPV Pending Microbiology 08/08 1041 URINE ROUT: Urine Culture - CAN Cancelled: Cancelled via OE: Duplicate Order Assessment/Plan Assessment: Patient is an 82-year-old female with a PMH significant for COPD, diabetes mellitus, hypertension, hyperlipidemia, osteoarthritis with chronic back pain, anxiety, depression who presents to the [place] ED with vague complaints of not feeling herself, malaise, diarrhea and fatigue. Patient had poor by mouth intake has labs INDICATIVE of a care likely prerenal. She also had mild hyperkalemia with T wave changes on EKG. Patient was deemed independent on ambulation with cane by nursing staff/PT. Patient is stable for discharge #LANE, likely pre-renal, improving negative for orthostatic hypotension #Mild hyperkalemia Resolved #Hypomagnesemia IV repletion today as the oral caused loose stool, will discharge on oral supplementation with scheduled lab work on 08/12/17 to assess th need to continue #Diarrhea loose stool again last night but was given oral magnesium which can stimulate the bowels leukocytosis has resolved #dirty UA Urine culture was sent but no growth so far, patient is asymptomatic #Chronic medical problems including diabetes mellitus, HTN, HLD, depression, anxiety, GERD. - Holding home lisinopril given LANE, will restart on discharge -Accu-Cheks 3 times a day before meals, at bedtime with low-dose NovoLog sliding scale Diet: Diabetic diet DVT prophylaxis: SC heparin, ALPS CODE STATUS: DNR/DNI Problem List: 1. Acute kidney injury 2. Hypomagnesemia Pain Ratin Pain Location: lumbar back Pain Goal: Pain 4 or less Pain Plan: pain pathway Tomorrow's Labs & Rationales: none
[2017-08-09 07:48] LABS: ABSOLUTE BASOPHIL COUNT 0 /CUMM (0.0-0.2); ABSOLUTE EOSINOPHIL COUNT 0.2 /CUMM (0.0-0.7); ABSOLUTE GRANULOCYTE CT 4.8 /CUMM (1.4-6.5); ABSOLUTE LYMPH COUNT 2.3 /CUMM (1.2-3.4); ABSOLUTE MONOCYTE COUNT 0.7 /CUMM (0.10-0.60); BASOPHIL % 0.5 % (0.0-2.0); EOSINOPHIL % 2.9 % (0-5); GRANULOCYTE % 59.4 % (42.2-75.2); HEMATOCRIT 38.3 % (37-47); MEAN CORPUSCULAR HGB 31.5 PG (27.0-31.0); MEAN CORPUSCULAR HGB CONC 32.9 G/DL (33.0-37.0); MEAN CORPUSCULAR VOLUME 95.7 FL (81.0-99.0); MEAN PLATELET VOLUME 7.7 FL (7.4-10.4); PLATELET COUNT 341 /CUMM (130-400)
--- NOTE | 2017-08-09 07:48 | Patient Discharge Instructions ---
Discharge Instructions General Discharge Information You were seen/treated for: LANE hypomagnesemia hyperkalemia Special Instructions: Please follow-up with Dr. David within 1 week of discharge. You will need bloodwork (BMP and Mg) done on 08/12/17 to check you magnesium level and renal function. We have provided you with the paper work to get this done. Please continue to stay hydrated and eat well as this will help prevent future issues with acute kidney injury and electrolyte imbalances. Call your doctor or return to the ER if he should experience any chest pain, lightheadedness, dizziness, shortness of breath. Acute Coronary Syndrome Inclusion Criteria At DC or during hospital stay patient has or had the following: ACS DIAGNOSIS No Discharge Core Measures Meds if any: Prescribed or Continued at Discharge Meds if any: NOT Prescribed or Continued at Discharge Congestive Heart Failure Inclusion Criteria At DC or during hospital stay patient has or had the following: CHF DIAGNOSIS No Discharge Core Measures Meds if any: Prescribed or Continued at Discharge Meds if any: NOT Prescribed or Continued at Discharge Cerebrovascular accident Inclusion Criteria At DC or during hospital stay patient has or had the following: CVA/TIA Diagnosis No Discharge Core Measures Meds if any: Prescribed or Continued at Discharge Meds if any: NOT Prescribed or Continued at Discharge Venous thromboembolism Inclusion Criteria VTE Diagnosis No VTE Type NONE VTE Confirmed by (Test) NONE Discharge Core Measures - Per Current guidelines, there needs to be overlap - treatment for the first 5 days of Warfarin therapy. - If discharged on Warfarin prior to 5 days of - overlap therapy, the patient will need to be - assessed for post discharge needs including - *Post discharge parental anticoagulation - *Warfarin and/or parental anticoagulation education - *Follow up date to check INR post discharge At least 5 days overlap therapy as Inpatient No Meds if any: Prescribed or Continued at Discharge Note: Overlap Therapy is Warfarin and Anticoagulant Meds if any: NOT Prescribed or Continued at Discharge
[2017-08-09] MEDS ORDERED: SLOW-MAG71.5 MG PO (07:49)
[2017-08-09 09:17] VITALS: BP 120/70
[2017-08-09] MEDS ORDERED: MAGNESIUM OXID400 M1 PO ×2 (09:44→15:29)
--- NOTE | 2017-08-09 11:08 | PN- Att Addend ---
Attending Addendum Attending Brief Note Patient offers no complaints feeling better, bright and alert this morning. Nurse noted some sundowning at night and maybe a little bit confused earlier this morning Vital signs are stable, no fever, no changes on physical exam magnesium was 1.4, discussed with resident will give 1 dose of IV magnesium, and then after replaced by mouth every and her BUN and creatinine are slowly coming down to her baseline. PT stated that the patient is ambulating okay and can go home, we'll start disposition plans with home care, follow labs early next week and follow with me next week at the office Intake & Output 08/09 1600 08/09 0400 08/08 1600 08/08 0400 08/07 1600 08/07 0400 Intake Total 120 120 360 0 Output Total 400 Balance -280 120 360 0 Intake, IV 0 Intake, Oral 120 120 360 0 Number 1 Bowel Movements Output, Urine 400 Patient 149 lb 160 lb 160 lb Weight Weight Bed scale Reported by Patient Reported by Patient Measurement Method Current Medications Sig/Jv Start time Last Medication Dose Route Stop Time Status Admin Acetaminophen 650 MG Q6P PRN 08/07 1830 AC PO Atorvastatin Calcium 10 MG 1700 08/08 1700 AC 08/08 PO 1720 Buspirone HCl 5 MG BID 08/08 0900 AC 08/09 PO 0917 Cyclobenzaprine HCl 10 MG TID PRN 08/08 0845 AC PO Escitalopram Oxalate 20 MG DAILY 08/08 09 AC 08/09 PO 0917 Heparin Sodium 5,000 UNIT Q8 08/07 2200 AC 08/09 (Porcine) SC 0504 Insulin Aspart 0 AT BEDTIME 08/08 2099 AC SC Insulin Aspart 0 TIDAC 08/08 08 AC SC Magnesium Oxide 400 MG DAILY 08/08 0900 DC 08/08 PO 0903 Magnesium Sulfate 1 GM ONCE ONE 08/09 0745 AC Dextrose/Water 100 ML IV 08/09 1144 Metoprolol Tartrate 25 MG BID 08/08 09 AC 08/09 PO 0917 Mirtazapine 30 MG AT BEDTIME 08/08 2100 AC 08/08 PO 2253 Oxycodone/ 2 TAB Q6P PRN 08/07 1830 AC Acetaminophen PO Laboratory Tests 08/09/17 0635: Anion Gap 12, Estimated GFR 43 L, BUN/Creatinine Ratio 16.7, Magnesium 1.4 L, CBC w Diff NO MAN DIFF REQ, RBC 4.00 L, MCV 95.7, MCH 31.5 H, MCHC 32.9 L, RDW 14.0, MPV 7.7, Gran % 59.4, Lymphocytes % 28.9, Monocytes % 8.3, Eosinophils % 2.9, Basophils % 0.5, Absolute Granulocytes 4.8, Absolute Lymphocytes 2.3, Absolute Monocytes 0.7 H, Absolute Eosinophils 0.2, Absolute Basophils 0 08/08/17 0615: Anion Gap 12, Estimated GFR 43 L, BUN/Creatinine Ratio 22.5, Magnesium 1.4 L, CBC w Diff NO MAN DIFF REQ, RBC 4.24, MCV 94.9, MCH 31.5 H, MCHC 33.2, RDW 14.0 , MPV 7.3 L, Gran % 65.2, Lymphocytes % 26.3, Monocytes % 6.2, Eosinophils % 2.1, Basophils % 0.2, Absolute Granulocytes 7.8 H, Absolute Lymphocytes 3.2, Absolute Monocytes 0.7 H, Absolute Eosinophils 0.2, Absolute Basophils 0 08/07/17 2235: Urine Color YEL, Urine Clarity CLEAR, Urine pH 6.0, Ur Specific [place] <= 1.005 , Urine Protein NEG, Urine Ketones NEG, Urine Nitrite POS H, Urine Bilirubin NEG, Urine Urobilinogen 0.2, Ur Leukocyte Esterase MOD H, Ur Microscopic SEDIMENT EXAMINED, Urine RBC RARE, Urine WBC 25-50 H, Ur Epithelial Cells FEW, Urine Bacteria PACKD H, Urine Hemoglobin NEG, Urine Glucose NEG 08/07/17 1020: Anion Gap 17 H, Estimated GFR 29 L, BUN/Creatinine Ratio 21.2, Glucose 112 H, Calcium 9.7, Magnesium 1.0 L, Total Bilirubin 0.7, AST 13 L, ALT 23, Alkaline Phosphatase 71, Troponin I < 0.01, Total Protein 7.2, Albumin 4.2, Globulin 3.0, Albumin/Globulin Ratio 1.4, CBC w Diff NO MAN DIFF REQ, RBC 4.28, MCV 94.5, MCH 31.1 H, MCHC 32.9 L, RDW 13.9, MPV 7.4, Gran % 72.3, Lymphocytes % 19.0 L, Monocytes % 6.9, Eosinophils % 1.4, Basophils % 0.4, Absolute Granulocytes 7.8 H, Absolute Lymphocytes 2.0, Absolute Monocytes 0.7 H, Absolute Eosinophils 0.2 , Absolute Basophils 0 Microbiology 08/08 1040 URINE ROUT: Urine Culture - CAN Cancelled: Cancelled via OE: Duplicate Order 08/07 2234 URINE ROUT: Urine Culture - RECD Microbiology 08/08 1040 URINE ROUT: Urine Culture - CAN Cancelled: Cancelled via OE: Duplicate Order 08/07 2234 URINE ROUT: Urine Culture - RECD Vital Signs Date Time Temp Pulse Resp B/P B/P Pulse O2 O2 Flow FiO2 Mean Ox Delivery Rate 08/09 0917 84 120/70 08/09 0600 97.1 66 20 112/80 96 Room Air 08/08 2253 75 108/60 08/08 2124 97.6 75 20 108/60 94 08/08 1950 Room Air 08/08 1925 98.2 93 18 110/66 93 08/08 1814 98.0 75 17 125/73 97 Room Air 08/08 1545 97.7 75 18 146/80 97 Room Air 08/08 1430 98.1 70 20 124/60 96 Room Air
== END 2017-08-09 15:50 | disposition home health service (06) | DRG 683 ==
LOC: ERH 09:30 → ERHI 17:47 → 1NO 17:47 → ENRESERV 08-08 16:59 → ENTRNSPT 08-08 18:57 → EDTRNSPT 08-08 18:58 → 1NO 08-08 18:58 → EDTRNSPTSTS 08-08 18:58 → 1NO 08-08 19:12 → CMPTRNSPT 08-08 19:37 → DELTRNSPT 08-09 15:10 → ENPENDDIS 08-09 15:15 → 1NO 08-09 15:50
PROVIDERS: Dermatology; Emergency Medicine; Student in an Organized Health Care Education/Training Program
DX: N17.9 Acute kidney failure, unspecified (principal); I69.354 Hemiplegia and hemiparesis following cerebral infarction affecting left non-dominant side; K55.9 Vascular disorder of intestine, unspecified; E87.5 Hyperkalemia; E83.42 Hypomagnesemia; E87.8 Other disorders of electrolyte and fluid balance, not elsewhere classified; E11.9 Type 2 diabetes mellitus without complications; D72.829 Elevated white blood cell count, unspecified; F32.9 Major depressive disorder, single episode, unspecified; J44.9 Chronic obstructive pulmonary disease, unspecified; Z79.84 Long term (current) use of oral hypoglycemic drugs; I10 Essential (primary) hypertension; M54.9 Dorsalgia, unspecified; M19.90 Unspecified osteoarthritis, unspecified site; F41.9 Anxiety disorder, unspecified; Z88.0 Allergy status to penicillin; H26.9 Unspecified cataract; K21.9 Gastro-esophageal reflux disease without esophagitis; R94.31 Abnormal electrocardiogram [ECG] [EKG]; R19.7 Diarrhea, unspecified
CPT/HCPCS: 1NSP; ERO; 36592; 71046; 81001; 82436; 87086; 93005; 93010; J1644

== ENCOUNTER 2017-11-06 17:04 | Inpatient (IN) | payer OTHER ==
[~2017-11-06] VITALS: Ht 162.6 cm; Wt 63.6 kg
[~2017-11-06 17:04] MED LIST changes: +BUSPIRONE HCL5 M1 PO; +MAGNESIUM OXID400 M1 PO; +SLOW-MAG71.5 MG PO
[2017-11-06 18:08] LABS: ABSOLUTE BASOPHIL COUNT 0 /CUMM (0.0-0.2); ABSOLUTE EOSINOPHIL COUNT 0.2 /CUMM (0.0-0.7); ABSOLUTE GRANULOCYTE CT 6.2 /CUMM (1.4-6.5); ABSOLUTE LYMPH COUNT 2.7 /CUMM (1.2-3.4); BASOPHIL % 0.2 % (0.0-2.0); EOSINOPHIL % 1.7 % (0-5); GRANULOCYTE % 61.7 % (42.2-75.2); HEMATOCRIT 37.1 % (37-47); MEAN CORPUSCULAR HGB 31.4 PG (27.0-31.0); MEAN CORPUSCULAR HGB CONC 33.4 G/DL (33.0-37.0); MEAN CORPUSCULAR VOLUME 93.9 FL (81.0-99.0); MEAN PLATELET VOLUME 7.1 FL (7.4-10.4); PLATELET COUNT 310 /CUMM (130-400); RBC DISTRIBUTION WIDTH 13.9 % (11.5-14.5); RED BLOOD CELL CT 3.95 /CUMM (4.20-5.40); WHITE BLOOD CELL COUNT 10.1 /CUMM (4.8-10.8)
--- NOTE | 2017-11-06 18:09 | RADIOLOGY REPORT ---
EXAMINATION: XR CHEST CLINICAL INFORMATION: Weakness. Concern for infection. COMPARISON: Chest x-ray 08/07/2017 TECHNIQUE: 2 views of the chest were obtained. FINDINGS: There is a large hiatal hernia. This is similar to prior chest x-ray. Lungs are clear. No pleural effusion or pneumothorax. The cardiac and mediastinal contours are normal. Heart size is normal. There are calcifications of the aorta. There is degenerative spondylosis of spine with multilevel disc height narrowing and endplate spurring. IMPRESSION: Large hiatal hernia. No acute abnormality of the chest.
--- NOTE | 2017-11-06 18:33 | ED GENERAL ADULT ---
See Addendum History of Present Illness General Chief Complaint: General Adult Stated Complaint: "IM NOT FEELING WELL" Source: patient, family Exam Limitations: no limitations Vital Signs & Intake/Output Vital Signs & Intake/Output Vital Signs Date Time Temp Pulse Resp B/P B/P Pulse O2 O2 Flow FiO2 Mean Ox Delivery Rate 11/06 1721 97.8 78 20 144/76 94 Room Air Allergies Coded Allergies: Penicillins (Mild, RASH 06/25/15) Reconcile Medications Beclomethasone Dipropionate (QVAR) 80 MCG AER.W.ADAP 1 PUF INH BID RESPIRATORY (Reported) Buspirone HCl 5 MG TABLET 1 TAB PO BID depression (Reported) Calcium (Elemental-Fr Calcarb) (Calcium Carbonate) 600 MG CALCIUM (1,500 MG) TABLET 1 TAB PO DAILY OSTEOPOROSIS Escitalopram Oxalate 20 MG TABLET 1 TAB PO DAILY DEPRESSION (Reported) Hyoscyamine (Levsin) 0.125 MG TABLET 1 TAB PO TID IBS (Reported) Lisinopril (Prinivil) 10 MG TABLET 1 TAB PO DAILY HTN (Reported) Magnesium Oxide 400 MG TABLET 1 TAB PO DAILY hypomagnesemia . Metformin HCl 500 MG TABLET 1 TAB PO BID DM (Reported) Metoprolol Tartrate 25 MG TABLET 1 TAB PO DAILY HEART/BP (Reported) Mirtazapine 45 MG TABLET 1 TAB PO QPM DEPRESSION (Reported) Multiple Vitamin (Multivitamins) 1 EACH TABLET 1 TAB PO DAILY SUPPLEMENT ( Reported) Naproxen/Esomeprazole Mag (Vimovo Dr 500-20 MG Tablet) 500 MG-20 MG TAB.IR.DR 1 TAB PO BID PAIN (Reported) Pantoprazole Sodium (Protonix) 40 MG TABLET.DR 1 TAB PO DAILY GERD (Reported) Simvastatin (Simvastatin*) 20 MG TABLET 1 TAB PO QPM HYPERLIPIDEMIA (Reported ) Triage Note: PT TO TRIAGE WITH HER DAUGHTER WITH COMPLAINTS OF NOT FEELING WELL FOR THE PAST 3 DAYS, COMPLAINS OF LACK OF APPETITE, CANT SLEEP AND FEELS VERY WEAK. PT WAS ADMITTED TO HOSPITAL [place] FOR LOW MAG LEVELS AND DAUGHTER STATES THAT SHE JUST FOUND OUT PT HAS NOT BEEN TAKING HER MAGNESIUM. DAUGHTER ALSO STATES THAT PT HAS SEEMED MORE CONFUSED Triage Nurses Notes Reviewed? yes HPI: Patient is an 82-year-old female with past medical history as outlined below, with recent diagnosis of hypomagnesemia on magnesium supplementation at home, who is brought in by her appropriately concerned family for vague symptoms of malaise and behavior that they deem bizarre for her. They state that she has her air conditioning on full blast 12/11, but today they found her in a hot house without her air on wearing a sweater. They noticed that she had not been taking her magnesium, and she told him that she forgot to take it and cannot identify when she she last had a dose. She also states that she stopped her albuterol MDI for COPD, and lately has had a "nasty cough." Upon my initial encounter the patient is generally nontoxic and well-appearing, currently in no acute distress. She does endorse the mild confusion. Past History Travel History Traveled to [place] past 21 day No Medical History Any Pertinent Medical History? 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 No Review of Systems Review of Systems Constitutional: Reports: chills, malaise, weakness. Denies: diaphoresis, fever. EENTM: Reports: no symptoms. Respiratory: Reports: no symptoms. Cardiovascular: Reports: no symptoms. GI: Reports: no symptoms. Genitourinary: Reports: no symptoms. Musculoskeletal: Reports: no symptoms. Skin: Reports: no symptoms. Neurological/Psychological: Reports: anxiety, confusion. Denies: ataxia, depressed, numbness, paresthesia, weakness. Hematologic/Endocrine: Reports: no symptoms. All Other Systems: Reviewed and Negative Physical Exam Physical Exam General Appearance: well developed/nourished, no apparent distress, alert, awake , comfortable Comments: HEENT: Inspection of the head reveals a normocephalic cranium with no signs of trauma. Ophtho: Extraocular muscles are intact and pupils are equal and reactive to light bilaterally with no afferent pupillary defect. The sclera are noninjected , and there is no obvious discharge. Neck: The trachea is midline, there is no obvious asymmetry or mass over the thyroid, and there is no midline cervical spine tenderness Respiratory: The lungs are clear and equal to auscultation bilaterally without wheezes, rales, or rhonchi. The patient exhibits no signs of labored breathing. Cardiac: Regular rhythm and non-tachycardic without appreciable murmurs on auscultation. No obvious JVD. GI: Examination of the abdomen reveals no significant focal tenderness in any of the four quadrants. There is negative Maynard's sign, negative McBurney's point tenderness, negative [place] sign, negative Vazquez-Godfrey sign, and no signs of peritonitis whatsoever on percussion or deep palpation. The skin is intact with no sign of trauma or infection. : Deferred Neuro: The patient is oriented to person, place, time, and situation, with no obvious focal motor deficits. There were no sensory deficits, and the patient exhibit purposeful movement of all 4 extremities. Cranial nerves II through XII are intact, and gait is normal. Behavioral: Calm and cooperative Dermatologic: Dermatologic examination reveals no diffuse rashes or exanthems, no petechiae, no ecchymoses, and no other signs of erythema or infection. Core Measures ACS in differential dx? Yes CVA/TIA Diagnosis: Yes Sepsis Present: No Sepsis Focused Exam Completed? No Progress Differential Diagnoses I considered the following diagnoses in my evaluation of the patient: Hypomagnesemia, other likely abnormality, acute kidney injury, UTI, dehydration, stroke, among multiple other possibilities. Plan of Care: Orders Procedure Date/time Status TROPONIN LEVEL 11/06 1752 Active URINALYSIS 11/06 1749 Active MAGNESIUM 11/06 1724 Active COMPREHENSIVE METABOLIC PANEL 11/06 172 Active CBC WITHOUT DIFFERENTIAL 11/07 1723 Complete EKG 11/06 172 Active Laboratory Tests 11/06/17 175: Anion Gap 11, Estimated GFR 36 L, BUN/Creatinine Ratio 11.4, Glucose 87, Calcium 9.4, Magnesium 1.1 L, Total Bilirubin 0.6, AST 22, ALT 23, Alkaline Phosphatase 53, Troponin I Pending, Total Protein 6.5, Albumin 3.8, Globulin 2.7 , Albumin/Globulin Ratio 1.4, CBC w Diff NO MAN DIFF REQ, RBC 3.95 L, MCV 93.9, MCH 31.4 H, MCHC 33.4, RDW 13.9, MPV 7.1 L, Gran % 61.7, Lymphocytes % 26.9, Monocytes % 9.5 H, Eosinophils % 1.7, Basophils % 0.2, Absolute Granulocytes 6.2, Absolute Lymphocytes 2.7, Absolute Monocytes 1.0 H, Absolute Eosinophils 0.2, Absolute Basophils 0 11/06/17 1749: Troponin I Cancelled Initial ED EKG: ECG at 1732 hrs. shows sinus rhythm with T-wave inversion in V2, Q waves in III, but no ST segment changes. T-wave inversion in V2 is new since prior study, otherwise no ischemic features. Normal intervals. Prior EKG: changed Hand-Off Endorsed To: Ashia LARIOS,Luis Felipe Morales Comments: Patient presents for nonspecific malaise which she describes as "smothering". When asked to elaborate she equates it most closely to dyspnea. She has not been taking her albuterol so I provided nebulizers. Labs pending, possible CT necessary if labs are normal, case signed out to Dr. Ang at shift change at 1900 hrs. Will possibly be hospitalized regardless as she lives alone and the family states she may represent an unsafe discharge given her confusion and altered mental status. Departure Departure Time of Disposition: 1906 Disposition: STILL A PATIENT Condition: Stable Clinical Impression Primary Impression: Confusion Referrals: Tushar David MD (PCP/Family) Departure Forms: Customer Survey General Discharge Information Critical Care Note Critical Care Note Critical Care Time: non-applicable
[2017-11-06] MEDS ORDERED: METFORMIN HCL500 M3 PO (18:37)
[2017-11-06] MEDS ORDERED: METOPROLOL TART25 M1 PO (18:38)
[2017-11-06] MEDS ORDERED: QVAR8.7 G1 INH (18:39)
[2017-11-06] MEDS ORDERED: MULTIVITAMINS1 EAC9 PO (18:39)
--- NOTE | 2017-11-06 21:14 | History & Physical ---
Nadia Mendozai 11[birth year]: General Information and HPI MD Statement: I have seen and personally examined LAMAR CARROLL and documented this H&P. The patient is a 82 year old F who presented with a patient stated chief complaint of []. Source of Information: patient Exam Limitations: no limitations History of Present Illness: This is an 82 yo elderly Female with PMH as documented below was brought in to the ER by her daughters after they found her to be confused wearing a sweater with her airconditoning turned off. She complains of having a 'queasy' feeling in her chest this noon, which did not radiate and did not progress. She states she has been feeling very worried on account of some personal family problems. She says she has not been eating well at all for the past few days on account of her anxiety and could not sleep well at night on account of the same. She also complains of gettng a diarrhea off and on whenever she is anxious which she did in the afternoon today as well. She admits to drinking at least 3-4 bottles of water a day, for the past few days. She denies palpitations, nausea, vomiting, belly pain. She has no history of falls. She does complain of tips of her fingers going white for the past few days. Apart from that, she lives by herself and is pretty independent with her work. She admits she has been careless with her Magnesium replacement and has not been taking it for the last few days. However, she says she duly takes all of the other medications. She says she is frogetful but that does not impair her functionally. Allergies/Medications Allergies: Coded Allergies: Penicillins (Mild, RASH 06/25/15) Home Med list Beclomethasone Dipropionate (QVAR) 80 MCG AER.W.ADAP 1 PUF INH BID RESPIRATORY (Reported) Buspirone HCl 5 MG TABLET 1 TAB PO BID depression (Reported) Calcium (Elemental-Fr Calcarb) (Calcium Carbonate) 600 MG CALCIUM (1,500 MG) TABLET 1 TAB PO DAILY OSTEOPOROSIS Cefuroxime Axetil (Cefuroxime) 500 MG TABLET 1 TAB PO BID UTI Hyoscyamine (Levsin) 0.125 MG TABLET 1 TAB PO TID IBS (Reported) Lisinopril (Prinivil) 10 MG TABLET 1 TAB PO DAILY HTN (Reported) Magnesium Oxide 400 MG TABLET 1 TAB PO DAILY hypomagnesemia . Metformin HCl 500 MG TABLET 1 TAB PO BID DM (Reported) Metoprolol Tartrate 25 MG TABLET 1 TAB PO DAILY HEART/BP (Reported) Mirtazapine 45 MG TABLET 1 TAB PO QPM DEPRESSION (Reported) Multiple Vitamin (Multivitamins) 1 EACH TABLET 1 TAB PO DAILY SUPPLEMENT ( Reported) Pantoprazole Sodium (Protonix) 40 MG TABLET.DR 1 TAB PO DAILY GERD (Reported) Past History Travel History Traveled to [place] past 21 day No Medical History Neurological: CVA SLIGHT L WEAKNESS EENT: cataracts, macular degeneration Cardiovascular: hypertension, hyperlipidemia, LOW MAGNESIUM Respiratory: pneumonia Gastrointestinal: lower GI bleed, ACID REFLUX ischemic colitis Hepatic: NONE Renal: NONE Musculoskeletal: chronic back pain Psychiatric: depression Endocrine: diabetes Blood Disorders: NONE Cancer(s): NONE 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 self Services at Home: None Primary Language: Nepali ETOH Use: denies use Illicit Drug Use: denies illicit drug use Functional Ability Ambulation: cane Review of Systems Review of Systems Constitutional: Reports: chills. Denies: fever, malaise, weakness, unexplained weight loss. EENTM: Reports: no symptoms. Cardiovascular: Reports: no symptoms. Respiratory: Reports: cough (dry cough). GI: Reports: diarrhea (off and on). Genitourinary: Reports: no symptoms. Musculoskeletal: Reports: back pain. Skin: Reports: no symptoms. Neurological/Psychological: Reports: anxiety, confusion, dementia, emotional problems. Hematologic/Endocrine: Reports: no symptoms. Exam & Diagnostic Data Last 24 Hrs of Vital Signs/I&O Vital Signs Date Time Temp Pulse Resp B/P B/P Pulse O2 O2 Flow FiO2 Mean Ox Delivery Rate 11/06 2300 97.8 65 22 140/70 95 Room Air 11/06 2146 97.5 72 18 171/74 96 Room Air 11/06 1939 96.0 71 20 162/67 96 Room Air 11/06 1925 95 Room Air 11/06 1900 97 11/06 1721 97.8 78 20 144/76 94 Room Air Intake & Output 11/07 0800 11/07 0000 11/06 1600 Intake Total Output Total Balance Patient 140 lb Weight Weight Bed scale Measurement Method Physical Exam General Appearance Alert, Oriented X3, Cooperative, No Acute Distress Skin No Rashes, No Breakdown, No Significant Lesion Skin Temp/Moisture Exam: Cool/Dry Sepsis Skin Exam (color): Normal for Ethnicity HEENT Atraumatic, PERRLA, EOMI Neck Supple Cardiovascular Regular Rate, Normal S1, Normal S2, No Murmurs Lungs Clear to Auscultation, Normal Air Movement Abdomen Normal Bowel Sounds, Soft, No Tenderness Neurological Normal Speech, Strength at 5/5 X4 Ext Extremities Normal Pulses Assessment/Plan Assessment: This is an 82 yo elderly Female with PMH of hypertension,DM.OA and depression is brought in the ER by her daughters who found her confused in the afternoon with her air conditioning turned off. The patient says that she was felt chilly and had a 'queasy' feeling in the middle of her chest. She admits she has not been eating well for the past few days and has been drinking at least 3-4 bottles of water everyday. She also complains of having on and off diarrhea especially when she is worried. On examination, she is alert, oriented and cooperative. Her physical examination is essentially unremarkable. Her labs Labs significant for Na of 125, potassium 5.8, BUN 16/creatinine 1.4, serum osm 259, urine osm 188, UA positive for leukocyte esteraseand many bacteria. EKG normal sinus rhythm, T-wave depression in V2, mild peaking of T waves in V3 to V4. We are admitting her for continous monitoring on the [facility] floor: 1. 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 UTI -positive Leukocyte esterse -chills in the afternoon -FU on urine cultures -start the patient on Ceftriaxone DVT prophylaxis with subcutaneous heparin DNR/DNI - As Ranked By This Provider Problem List: 1. Depression 2. History of - hypertension 3. Hyperkalemia 4. Hypomagnesemia 5. Acute electrocardiogram changes 6. Confusion 7. Hyponatremia Core Measures/Misc (01/06) Acute Coronary Syndrome ACS Diagnosis: No Congestive Heart Failure Congestive Heart Failure Diagnosis No Cerebrovascular Accident CVA/TIA Diagnosis: No VTE (View Protocol) VTE Risk Factors Age>40 No Mechanical VTE Prophylaxis d/t N/A MechProphylax Ordered No VTE Pharm Prophylaxis d/t NA PharmProphylax ordered Sepsis (View protocol) Sepsis Present: No If YES complete Sepsis Event Note If YES complete Sepsis Event Note Tika Rendon 11/06/17 2246: Core Measures/Misc (01/06) Sepsis (View protocol) If YES complete Sepsis Event Note If YES complete Sepsis Event Note Resident Review Statement Resident Statement: examined this patient, discussed with general internal medicine doctor, agreed with general internal medicine doctor Other Findings: 82-year-old woman from home, past medical history significant for COPD not on home oxygen, [id number] diabetes, hypertension, hyperlipidemia, osteoarthritis, depression, brought in by family for evaluation of "bizarre behavior". She usually keeps her air conditioning on all day on interview patient was alert and oriented and answers her questions appropriately. Stated that she was having some chills earlier today that is why she turned off her AC. She says that she has been having some personal family issues which has been on her mind. Reports decreased p.o. intake however she has been drinking about 3-4 bottles of water a day. She also reports that she has ongoing diarrhea with the last episode today. Earlier today she also reports "funny feeling" in mid chest area which was nonradiating. Denies fever, chills, shortness of breath, palpitations, hallucinations, nausea, vomiting, abdominal pain, falls, loss of consciousness. Reports that she seems to forget things lately. She has been forgetting to take her magnesium pills. She lives alone with her daughters checking in on her daily. At baseline she walks with a cane and is independent with all of her activities of daily living. Vitals stable in ED with fingersticks 85. On examination she is alert and awake, HEENT within normal limits. RS clear to auscultation, CVS S1-S2 no murmurs, abdomen soft nontender, no peripheral edema noted, power 5 out of 5 4 extremities. Labs significant for acute hyponatremia of 125, potassium 5.8, hyperchloremia 88, CKD BUN 16/ creatinine 1.4, troponin 0.01, serum osm 259, urine osm 188, UA positive for leukocyte esterase. Chest x-ray shows no acute abnormalities. EKG normal sinus rhythm, T-wave depression in V2, mild peaking of T waves in V3 to V4. ED she was given 1 L normal saline and repleted with 1 time IV Mag Problem list: Hypotonic hyponatremia likely secondary to primary polydipsia versus SIADH Hypomagnesemia Hyperkalemia UTI [id number] diabetes mellitus Depression Plan: 24 hour monitoring on telemetry floor Trend troponin EKGs [address] on 1 L fluid restriction, follow-up BEP/mag now Replete magnesium as needed and continue home dose Follow-up blood and urine cultures, we will start her on IV ceftriaxone Hold metformin, Accu-Cheks, NovoLog sliding scale Diabetic diet with 1 L fluid restriction We will hold her Lexapro, mirtazapine and assess her need to continue these medications, consider psych consult Please reach out to her daughter in the morning we tried but was unable to reach her DVT prophylaxis subcu heparin DNR/DNI Demetria LARIOS,[facility] 11/07/17 1015: Core Measures/Misc (01/06) Sepsis (View protocol) If YES complete Sepsis Event Note If YES complete Sepsis Event Note Attending MD Review Statement Attending Statement Attending MD Statement: examined this patient, discuss w/resident/PA/GOODWILL AMBASSADOR, agreed w/resident/PA/GOODWILL AMBASSADOR, discussed with family, reviewed EMR data (avail), discussed with nursing, discussed with case mgmt, reviewed images, amended to note Attending Assessment/Plan: Patient is an 82-year-old female with a PMH significant for Chronic yong dz (not on oxygen) former smoker, diabetes mellitus, hypertension, hyperlipidemia, osteoarthritis with chronic back pain, anxiety, depression who presents to the [place] ED with vague complaints of not feeling herself, malaise, Altered behaviour ISsues Symptomatic Hyponatremia due to polydypsia with a component of siadh Electrolyte abnormality (hyponateria, hypomag, hyperkalemia UTI NIDDM DEpression Chronic back pain Poly pharmacy CKD Prob sick euthyroid - needs tfts repeated PPI use prob cause of hypomag Sig Hiatal hernia Ex smoker with prob copd not on Severe djd spine with disc dz Sig chronic vol loss and 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
[2017-11-06 23:00] VITALS: BP 140/70
[2017-11-07 05:43] LABS: ABSOLUTE BASOPHIL COUNT 0 /CUMM (0.0-0.2); ABSOLUTE EOSINOPHIL COUNT 0.2 /CUMM (0.0-0.7); ABSOLUTE GRANULOCYTE CT 6.6 /CUMM (1.4-6.5); ABSOLUTE LYMPH COUNT 2.2 /CUMM (1.2-3.4); ABSOLUTE MONOCYTE COUNT 0.6 /CUMM (0.10-0.60); BASOPHIL % 0.4 % (0.0-2.0); GRANULOCYTE % 68.7 % (42.2-75.2); HEMATOCRIT 38.9 % (37-47); MEAN CORPUSCULAR HGB 31.7 PG (27.0-31.0); MEAN CORPUSCULAR HGB CONC 33.3 G/DL (33.0-37.0); MEAN CORPUSCULAR VOLUME 95.2 FL (81.0-99.0); MEAN PLATELET VOLUME 7.2 FL (7.4-10.4); PLATELET COUNT 283 /CUMM (130-400); RBC DISTRIBUTION WIDTH 13.8 % (11.5-14.5); RED BLOOD CELL CT 4.09 /CUMM (4.20-5.40); WHITE BLOOD CELL COUNT 9.6 /CUMM (4.8-10.8)
[2017-11-07 07:00] VITALS: BP 128/80
--- NOTE | 2017-11-07 07:13 | PN- Housestaff ---
Viet Moreno 11/07/17 0713: Subjective Follow-up For: Electrolyte abnormalities Complaints: no complaints Subjective: Pt seen and examined at bedside this am. She states feeling better, though still has some personal issues she's worried about. She was pleasant, talkative and cooperative. Review of Systems Constitutional: Reports: see HPI. Objective Last 24 Hrs of Vital Signs/I&O Laboratory Tests 11/07/17 0515: Anion Gap 14, Estimated GFR 43 L, BUN/Creatinine Ratio 11.7, Magnesium 2.0, Cortisol AM Sample 10.2, CBC w Diff NO MAN DIFF REQ, RBC 4.09 L, MCV 95.2, MCH 31.7 H, MCHC 33.3, RDW 13.8, MPV 7.2 L, Gran % 68.7, Lymphocytes % 22.6, Monocytes % 6.3, Eosinophils % 2.0, Basophils % 0.4, Absolute Granulocytes 6.6 H, Absolute Lymphocytes 2.2, Absolute Monocytes 0.6, Absolute Eosinophils 0.2, Absolute Basophils 0 11/06/17 2315: Anion Gap 12, Estimated GFR 47 L, BUN/Creatinine Ratio 13.6, Glucose 76, Magnesium 1.5 L, Troponin I < 0.01, TSH 6.920 H, Free T4 1.31 11/06/17 2222: Magnesium Cancelled 11/06/172105: Urine Color YEL, Urine Clarity HAZY H, Urine pH 6.0, Ur Specific [place] 1.010, Urine Protein NEG, Urine Ketones NEG, Urine Nitrite NEG, Urine Bilirubin NEG, Urine Urobilinogen 0.2, Ur Leukocyte Esterase LARGE H, Ur Microscopic SEDIMENT EXAMINED, Urine RBC 1-3, Urine WBC > 75 H, Ur Epithelial Cells FEW, Urine Bacteria MANY H, Urine Hemoglobin TRACE-INTACT, Urine Glucose NEG 11/06/172100: Urine Osmolality 188 L, Ur Random Creatinine 49.1, Ur Random Sodium 24 L, Ur Random Potassium 23.1, Fraction Sodium Excret 0.5 11/06/17 1752: Anion Gap 11, Estimated GFR 36 L, BUN/Creatinine Ratio 11.4, Glucose 87, Serum Osmolality 259 L, Calcium 9.4, Magnesium 1.1 L, Total Bilirubin 0.6, AST 22, ALT 23, Alkaline Phosphatase 53, Troponin I < 0.01, Total Protein 6.5, Albumin 3.8, Globulin 2.7, Albumin/Globulin Ratio 1.4, CBC w Diff NO MAN DIFF REQ, RBC 3.95 L, MCV 93.9, MCH 31.4 H, MCHC 33.4, RDW 13.9, MPV 7.1 L, Gran % 61.7, Lymphocytes % 26.9, Monocytes % 9.5 H, Eosinophils % 1.7, Basophils % 0.2, Absolute Granulocytes 6.2, Absolute Lymphocytes 2.7, Absolute Monocytes 1.0 H, Absolute Eosinophils 0.2, Absolute Basophils 0 11/06/17 1749: Troponin I Cancelled Microbiology 11/07 020 BLOOD: Blood Culture - RECD 11/06 2309 UPPER RESP: Surveillance Culture - COLB 11/06 2309 GI: Surveillance Culture - COLB 11/06 2105 URINE ROUT: Urine Culture - RECD Vital Signs Date Time Temp Pulse Resp B/P B/P Pulse O2 O2 Flow FiO2 Mean Ox Delivery Rate 11/07 0856 128/80 11/07 0856 128/80 11/07 0700 98.2 73 17 128/80 96 Room Air 11/07 0000 Room Air 11/06 2300 97.8 65 22 140/70 95 Room Air 11/06 2146 97.5 72 18 171/74 96 Room Air 11/06 1939 96.0 71 20 162/67 96 Room Air 11/06 1925 95 Room Air 11/06 1900 97 11/06 1721 97.8 78 20 144/76 94 Room Air Intake & Output 11/07 1600 11/07 0800 11/07 0000 Intake Total 100 Output Total 1000 Balance -900 Intake, IV 100 Output, Urine 1000 Patient 140 lb Weight Weight Bed scale Measurement Method Physical Exam General Appearance: Alert, Oriented X3, Cooperative, No Acute Distress Skin Temp/Moisture Exam: Warm/Dry Neck: Supple, No JVD Cardiovascular: Regular Rate, Normal S1, Normal S2, No Murmurs Lungs: Clear to Auscultation, Normal Air Movement Abdomen: Normal Bowel Sounds, Soft, No Tenderness, No Hepatospenomegaly, No Masses Current Medications: Current Medications Sig/Jv Start time Last Medication Dose Route Stop Time Status Admin Acetaminophen 500 MG Q6P PRN 11/06 2345 AC PO Albuterol Sulfate 3 ML ONCE ONE 11/06 1830 DC 11/06 INH 11/06 1831 1900 Atorvastatin Calcium 5 MG 1700 11/07 1700 AC PO Calcium 600 MG DAILY 11/07 0900 AC 11/07 PO 0856 Calcium Gluconate 1 GM .STK-MED ONE 11/07 0105 DC IV 11/07 0106 Calcium Gluconate 1 GM ONCE ONE 11/06 2300 CAN Sodium Chloride 100 ML IV 11/06 2359 Ceftriaxone Sodium 1,000 MG 2300 11/06 2300 AC 11/07 IV 0219 Heparin Sodium 5,000 UNIT Q8 11/07 0600 AC 11/07 (Porcine) SC 0712 Ibuprofen 600 MG Q6 11/06 2359 CAN PO Insulin Aspart 0 TIDAC 11/07 0800 AC SC Ipratropium [place] 2.5 ML ONCE ONE 11/06 1830 DC 11/06 INH 11/06 1831 1900 Lisinopril 10 MG DAILY 11/07 0900 AC 11/07 PO 0856 Magnesium Oxide 400 MG DAILY 11/07 0900 AC 11/07 PO 0856 Magnesium Sulfate 1 GM .STK-MED ONE 11/07 1037 DC IV 11/07 1038 Magnesium Sulfate 1 GM ONCE ONE 11/07 0245 DC 11/07 Dextrose/Water 100 ML IV 11/07 0644 0300 Magnesium Sulfate 1 GM ONCE ONE 11/06 1915 DC 11/06 Dextrose/Water 100 ML IV 11/06 2314 1925 Metoprolol Tartrate 25 MG DAILY 11/07 0900 AC 11/07 PO 0856 Metoprolol Tartrate 25 MG DAILY 11/06 2300 DC PO Multivitamins 1 TAB DAILY 11/07 0900 AC 11/07 Therapeutic PO 0856 Sodium Chloride 1,000 ML ONCE ONE 11/06 2015 DC 11/06 IV 11/07 0254 2112 Last 24 Hrs of Lab/Jono Results Last 24 Hrs of Labs/Mics: Laboratory Tests 11/07/17 0515: Anion Gap 14, Estimated GFR 43 L, BUN/Creatinine Ratio 11.7, Magnesium 2.0, Cortisol AM Sample 10.2, CBC w Diff NO MAN DIFF REQ, RBC 4.09 L, MCV 95.2, MCH 31.7 H, MCHC 33.3, RDW 13.8, MPV 7.2 L, Gran % 68.7, Lymphocytes % 22.6, Monocytes % 6.3, Eosinophils % 2.0, Basophils % 0.4, Absolute Granulocytes 6.6 H, Absolute Lymphocytes 2.2, Absolute Monocytes 0.6, Absolute Eosinophils 0.2, Absolute Basophils 0 11/06/17 2315: Anion Gap 12, Estimated GFR 47 L, BUN/Creatinine Ratio 13.6, Glucose 76, Magnesium 1.5 L, Troponin I < 0.01, TSH 6.920 H, Free T4 1.31 11/06/17 222: Magnesium Cancelled 11/06/172105: Urine Color YEL, Urine Clarity HAZY H, Urine pH 6.0, Ur Specific [place] 1.010, Urine Protein NEG, Urine Ketones NEG, Urine Nitrite NEG, Urine Bilirubin NEG, Urine Urobilinogen 0.2, Ur Leukocyte Esterase LARGE H, Ur Microscopic SEDIMENT EXAMINED, Urine RBC 1-3, Urine WBC > 75 H, Ur Epithelial Cells FEW, Urine Bacteria MANY H, Urine Hemoglobin TRACE-INTACT, Urine Glucose NEG 11/06/172100: Urine Osmolality 188 L, Ur Random Creatinine 49.1, Ur Random Sodium 24 L, Ur Random Potassium 23.1, Fraction Sodium Excret 0.5 11/06/17 175: Anion Gap 11, Estimated GFR 36 L, BUN/Creatinine Ratio 11.4, Glucose 87, Serum Osmolality 259 L, Calcium 9.4, Magnesium 1.1 L, Total Bilirubin 0.6, AST 22, ALT 23, Alkaline Phosphatase 53, Troponin I < 0.01, Total Protein 6.5, Albumin 3.8, Globulin 2.7, Albumin/Globulin Ratio 1.4, CBC w Diff NO MAN DIFF REQ, RBC 3.95 L, MCV 93.9, MCH 31.4 H, MCHC 33.4, RDW 13.9, MPV 7.1 L, Gran % 61.7, Lymphocytes % 26.9, Monocytes % 9.5 H, Eosinophils % 1.7, Basophils % 0.2, Absolute Granulocytes 6.2, Absolute Lymphocytes 2.7, Absolute Monocytes 1.0 H, Absolute Eosinophils 0.2, Absolute Basophils 0 11/06/17 1749: Troponin I Cancelled Microbiology 11/07 199 BLOOD: Blood Culture - RECD 11/06 2309 UPPER RESP: Surveillance Culture - COLB 11/06 2309 GI: Surveillance Culture - COLB 11/06 2105 URINE ROUT: Urine Culture - RECD Orders Radiology Findings: 07/18/ EXAM TYPE: RAD - XRY-CHEST XRAY, TWO VIEWS EXAMINATION: XR CHEST CLINICAL INFORMATION: Weakness. Concern for infection. COMPARISON: Chest x-ray 08/07/2017 TECHNIQUE: 2 views of the chest were obtained. FINDINGS: There is a large hiatal hernia. This is similar to prior chest x-ray. Lungs are clear. No pleural effusion or pneumothorax. The cardiac and mediastinal contours are normal. Heart size is normal. There are calcifications of the aorta. There is degenerative spondylosis of spine with multilevel disc height narrowing and endplate spurring. IMPRESSION: Large hiatal hernia. No acute abnormality of the chest. Assessment/Plan Assessment: 82 y/o F with PMH significant for COPD (not on home o2), DM, HTN, HLD, OA and depression, who came into the ED because of bizarre behaviour and a feeling of uneasiness on the chest. Pt is indepent at baseline on her ADLs and living alone with her daughters checking on her. On the ED, she was found to be hyponatremic, hyperkalemic, and a BUN/Cr of 16/1.4 with negative trop; she was also found to have a UA concerning for UTI. She was admitted to the unit as a tele hold for management of multiple electrolyte abnormalities. IMPRESSION #Multiple electrolyte abnormalities #UTI #H/o DM #H/o Depression #Multiple electrolyte abnormalities Pt was found to be hyponatremic on admission, with a Na of 125. She was placed on fluid restriction, Na slowly trending up (126->130); magnessium was replaced (1.1->2.0) and potassium trended down to 4.6. Hyponatremia likely due to SIADH as per urine lytes and osm studies. PPI will be held, likely cause of magnessium depletion -Continue replacement -F/u BEP #UTI UA positive for leuk esterase, wbc and bacteria. Pt was started on IV ceftriaxone after cultures were taken. -F/u cultures -Pt on ceftriaxone #H/o DM Patient with a history of DM. Latest bedside glucoses have been between 80-107. Pt on a Consistent Carbohydrate 3 diet, on novolog ISS. -bedside glucose monitoring with meals -novolog ISS #H/o depression Home meds have been restarted -Mirtazapine, escitalopram, buspirone Problem List: 1. Depression 2. Hyponatremia 3. Hyperkalemia 4. Hypomagnesemia Pain Ratin Pain Location: No pain Pain Goal: Pain 4 or less Pain Plan: n/a Tomorrow's Labs & Rationales: BEP, omar Augustin MD,[facility] 11/07/17 1025: Attending MD Review Statement Attending Statement Attending MD Statement: examined this patient, discuss w/resident/PA/VOCATIONAL REHABILITATION SPECIALIST, agreed w/resident/PA/VOCATIONAL REHABILITATION SPECIALIST, discussed with family, reviewed EMR data (avail), discussed with nursing, discussed with case mgmt, reviewed images, amended to note Attending Assessment/Plan: Patient is an 82-year-old female with a PMH significant for Chronic yong dz (not on oxygen) former smoker, diabetes mellitus, hypertension, hyperlipidemia, osteoarthritis with chronic back pain, anxiety, depression who presents to the [place] ED with vague complaints of not feeling herself, malaise, Altered behaviour ISsues Symptomatic Hyponatremia due to polydypsia with a component of siadh Electrolyte abnormality (hyponateria, hypomag, hyperkalemia UTI NIDDM DEpression Chronic back pain Poly pharmacy CKD Prob sick euthyroid - needs tfts repeated PPI use prob cause of hypomag Sig Hiatal hernia Ex smoker with prob copd not on Severe djd spine with disc dz Sig chronic vol loss and 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
--- NOTE | 2017-11-07 10:15 | Admission Certification ---
Admission Certification Certification Statement - As attending physician, I certify that at the time of - admission, based on clinical presentation, severity of - symptoms, need for further diagnostic testing and - therapeutic interventions, and risk of adverse outcomes - without in-hospital treatment, in my clinical assessment, - this patient requires an acute hospital stay for a minimum - of two nights or longer. I have also considered psychsocial - factors such as support system, advanced age, financial - issues, cognitive issues, and failed out-patient treatments, - past re-admission history, safety of patient, and lack of - compliance as applicable. Specific rationale supporting this admission is: Severe symptomatic hyponatremia
[2017-11-07 15:23] VITALS: BP 110/70
[2017-11-07 22:43] VITALS: BP 106/60
[2017-11-08 07:01] VITALS: BP 112/84
[2017-11-08 07:56] LABS: ABSOLUTE BASOPHIL COUNT 0.1 /CUMM (0.0-0.2); ABSOLUTE EOSINOPHIL COUNT 0.1 /CUMM (0.0-0.7); ABSOLUTE GRANULOCYTE CT 6.6 /CUMM (1.4-6.5); ABSOLUTE LYMPH COUNT 2.2 /CUMM (1.2-3.4); ABSOLUTE MONOCYTE COUNT 0.7 /CUMM (0.10-0.60); BASOPHIL % 0.5 % (0.0-2.0); EOSINOPHIL % 1.1 % (0-5); GRANULOCYTE % 68.7 % (42.2-75.2); HEMATOCRIT 36.6 % (37-47); MEAN CORPUSCULAR HGB 31.6 PG (27.0-31.0); MEAN CORPUSCULAR HGB CONC 33.1 G/DL (33.0-37.0); MEAN CORPUSCULAR VOLUME 95.3 FL (81.0-99.0); MEAN PLATELET VOLUME 7.8 FL (7.4-10.4); PLATELET COUNT 293 /CUMM (130-400); RBC DISTRIBUTION WIDTH 13.5 % (11.5-14.5); RED BLOOD CELL CT 3.84 /CUMM (4.20-5.40); WHITE BLOOD CELL COUNT 9.7 /CUMM (4.8-10.8)
--- NOTE | 2017-11-08 11:39 | PN- Housestaff ---
Anam Duggan 11/08/17 1138: Subjective Follow-up For: Hypotonic hyponatremia Subjective: No acute events overnight, afebrile,. Patient has no complaint of, asking why she is continues to be hospitalized. She states she feels normal. Denies fever , shortness of breath, chills, swelling. Review of Systems Constitutional: Reports: see HPI. Objective Last 24 Hrs of Vital Signs/I&O Vital Signs Date Time Temp Pulse Resp B/P B/P Pulse O2 O2 Flow FiO2 Mean Ox Delivery Rate 11/08 0906 90 118/68 11/08 0906 90 118/68 11/08 0701 97.5 77 20 112/84 95 11/07 2243 97.7 79 20 106/60 95 Room Air Intake & Output 11/08 1600 11/08 0800 11/08 0000 Intake Total 70 620 Output Total 500 300 Balance -430 320 Intake, IV 10 20 Intake, Oral 60 600 Output, Urine 500 300 Physical Exam General Appearance: Alert, Oriented X3, Cooperative Skin: No Rashes HEENT: Atraumatic, EOMI Cardiovascular: Regular Rate, Normal S1, Normal S2, Systolic 2/6 murmur Lungs: Clear to Auscultation, Normal Air Movement Abdomen: Normal Bowel Sounds, Soft, No Tenderness Extremities: No Cyanosis, Normal Pulses, +1 pedal edema bilat Assessment/Plan Assessment: 82 y/o F with PMH significant for COPD (not on home o2), DM, HTN, HLD, OA and depression, who came into the ED because of bizarre behaviour and a feeling of uneasiness on the chest. Pt is indepent at baseline on her ADLs and living alone with her daughters checking on her. On the ED, she was found to be hyponatremic, hyperkalemic, and a BUN/Cr of 16/1.4 with negative trop; she was also found to have a UA concerning for UTI. She was admitted to the unit as a tele hold for management of multiple electrolyte abnormalities. IMPRESSION #Metabolic Encephalopathy #Multiple electrolyte abnormalities #UTI #H/o DM #H/o Depression #Metabolic Encephalopathy: most like hyponatremia induced, Na level on admission was 125. 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 Na is trending upwards, 133 today. Plan: -continue fluid restrictions - hold Lexapro, as it is likely contributing to HypoNatremia #Multiple electrolyte abnormalities Pt was found to be hyponatremic on admission, with a Na of 125. She was placed on fluid restriction, Na slowly trending up (126->130); magnessium was replaced (1.1->2.0) and potassium trended down to 4.6. Hyponatremia likely due to SIADH as per urine lytes and osm studies. PPI will be held, likely cause of magnessium depletion -Continue replacement -F/u BEP #UTI UA positive for leuk esterase, wbc and bacteria. Pt was started on IV ceftriaxone after cultures were taken. -F/u cultures -Cont. Ceftriaxone day 2/ #H/o DM Patient with a history of DM. Latest bedside glucoses have been between 80-107. Pt on a Consistent Carbohydrate 3 diet, on novolog ISS. -bedside glucose monitoring with meals -novolog ISS #H/o depression and anxiety plan: - d/c lexapro and mirtazaprine - increase Buspirone 5mg PO TID, per Psych rec's. Input is highly appreciated #hypertension: plan - Continue Metoprolol 25mg - Lisinopril 10mg #hyperlipidema plan - Lipitor 5mg DVT PPx: Heparin Diet: Carbohydrate III Code Status: DNR/DNI Problem List: 1. Hyponatremia Pain Ratin Pain Location: n/a Pain Goal: Remain pain free Pain Plan: tylenol Tomorrow's Labs & Rationales: erich Augustin MD,[facility] 11/08/17 1341: Attending MD Review Statement Attending Statement Attending MD Statement: examined this patient, discuss w/resident/PA/HAND RIGGER, agreed w/resident/PA/HAND RIGGER, discussed with family, reviewed EMR data (avail), discussed with nursing, discussed with case mgmt, reviewed images, amended to note Attending Assessment/Plan: Seen and examined today Still at times confused All the data reviewed The sodium is improving Creatinine is stable White count is stable Chest x-ray showed large hiatal hernia Laboratory Tests 11/08 11/07 0632 0515 Chemistry Sodium (137 - 145 mmol/L) 133 L 130 L Potassium (3.5 - 5.1 mmol/L) 5.0 4.6 Chloride (98 - 107 mmol/L) 97 L 93 L Carbon Dioxide (22 - 30 mmol/L) 23 23 Anion Gap (5 - 16) 12 14 BUN (7 - 17 mg/dL) 14 14 Creatinine (0.5 - 1.0 mg/dL) 1.2 H 1.2 H Estimated GFR (>60 ml/min) 43 L 43 L BUN/Creatinine Ratio (7 - 25 %) 11.7 11.7 Magnesium (1.6 - 2.3 mg/dL) 1.6 2.0 Cortisol AM Sample (4.46 - 22.7 ug/dL) 10.2 Hematology CBC w Diff NO MAN DIFF REQ NO MAN DIFF REQ WBC (4.8 - 10.8 /CUMM) 9.7 9.6 RBC (4.20 - 5.40 /CUMM) 3.84 L 4.09 L Hgb (12.0 - 16.0 G/DL) 12.1 12.9 Hct (37 - 47 %) 36.6 L 38.9 MCV (81.0 - 99.0 FL) 95.3 95.2 MCH (27.0 - 31.0 PG) 31.6 H 31.7 H MCHC (33.0 - 37.0 G/DL) 33.1 33.3 RDW (11.5 - 14.5 %) 13.5 13.8 Plt Count (130 - 400 /CUMM) 293 283 MPV (7.4 - 10.4 FL) 7.8 7.2 L Gran % (42.2 - 75.2 %) 68.7 68.7 Lymphocytes % (20.5 - 51.1 %) 22.4 22.6 Monocytes % (1.7 - 9.3 %) 7.3 6.3 Eosinophils % (0 - 5 %) 1.1 2.0 Basophils % (0.0 - 2.0 %) 0.5 0.4 Absolute Granulocytes (1.4 - 6.5 /CUMM) 6.6 H 6.6 H Absolute Lymphocytes (1.2 - 3.4 /CUMM) 2.2 2.2 Absolute Monocytes (0.10 - 0.60 /CUMM) 0.7 H 0.6 Absolute Eosinophils (0.0 - 0.7 /CUMM) 0.1 0.2 Absolute Basophils (0.0 - 0.2 /CUMM) 0.1 0 11/06 11/06 11/06 2315 2222 2106 Chemistry Sodium (137 - 145 mmol/L) 125 L Potassium (3.5 - 5.1 mmol/L) 5.0 Chloride (98 - 107 mmol/L) 92 L Carbon Dioxide (22 - 30 mmol/L) 21 L Anion Gap (5 - 16) 12 BUN (7 - 17 mg/dL) 15 Creatinine (0.5 - 1.0 mg/dL) 1.1 H Estimated GFR (>60 ml/min) 47 L BUN/Creatinine Ratio (7 - 25 %) 13.6 Glucose (65 - 99 mg/dL) 76 Magnesium (1.6 - 2.3 mg/dL) 1.5 L Cancelled Troponin I (< 0.11 ng/ml) < 0.01 TSH (0.270 - 4.200 uIU/mL) 6.920 H Free T4 (0.85 - 1.93 ng/dL) 1.31 Urines Urine Color (YEL,AMB,STR) YEL Urine Clarity (CLEAR) HAZY H Urine pH (5.0 - 8.0) 6.0 Ur Specific [place] (1.001 - 1.035) 1.010 Urine Protein (NEG,<30 MG/DL) NEG Urine Ketones (NEG) NEG Urine Nitrite (NEG) NEG Urine Bilirubin (NEG) NEG Urine Urobilinogen (0.1 - 1.0 EU/dl) 0.2 Ur Leukocyte Esterase (NEG) LARGE H Ur Microscopic SEDIMENT EXAMINED Urine RBC (0 - 5 /HPF) 1-3 Urine WBC (0 - 2 /HPF) > 75 H Ur Epithelial Cells (NONE,FEW) FEW Urine Bacteria (NEG/NONE) MANY H Urine Hemoglobin (NEG) TRACE-INTACT Urine Glucose (N MG/DL) NEG 11/061 1752 1749 Chemistry Sodium (137 - 145 mmol/L) 125 L Potassium (3.5 - 5.1 mmol/L) 5.8 H Chloride (98 - 107 mmol/L) 88 L Carbon Dioxide (22 - 30 mmol/L) 25 Anion Gap (5 - 16) 11 BUN (7 - 17 mg/dL) 16 Creatinine (0.5 - 1.0 mg/dL) 1.4 H Estimated GFR (>60 ml/min) 36 L BUN/Creatinine Ratio (7 - 25 %) 11.4 Glucose (65 - 99 mg/dL) 87 Serum Osmolality (285 - 295 MOSM/KG) 259 L Calcium (8.4 - 10.2 mg/dL) 9.4 Magnesium (1.6 - 2.3 mg/dL) 1.1 L Total Bilirubin (0.2 - 1.3 mg/dL) 0.6 AST (14 - 36 U/L) 22 ALT (9 - 52 U/L) 23 Alkaline Phosphatase (<127 U/L) 53 Troponin I (< 0.11 ng/ml) < 0.01 Cancelled Total Protein (6.3 - 8.2 g/dL) 6.5 Albumin (3.5 - 5.0 g/dL) 3.8 Globulin (1.9 - 4.2 gm/dL) 2.7 Albumin/Globulin Ratio (1.1 - 2.2 %) 1.4 Hematology CBC w Diff NO MAN DIFF REQ WBC (4.8 - 10.8 /CUMM) 10.1 RBC (4.20 - 5.40 /CUMM) 3.95 L Hgb (12.0 - 16.0 G/DL) 12.4 Hct (37 - 47 %) 37.1 MCV (81.0 - 99.0 FL) 93.9 MCH (27.0 - 31.0 PG) 31.4 H MCHC (33.0 - 37.0 G/DL) 33.4 RDW (11.5 - 14.5 %) 13.9 Plt Count (130 - 400 /CUMM) 310 MPV (7.4 - 10.4 FL) 7.1 L Gran % (42.2 - 75.2 %) 61.7 Lymphocytes % (20.5 - 51.1 %) 26.9 Monocytes % (1.7 - 9.3 %) 9.5 H Eosinophils % (0 - 5 %) 1.7 Basophils % (0.0 - 2.0 %) 0.2 Absolute Granulocytes (1.4 - 6.5 /CUMM) 6.2 Absolute Lymphocytes (1.2 - 3.4 /CUMM) 2.7 Absolute Monocytes (0.10 - 0.60 /CUMM) 1.0 H Absolute Eosinophils (0.0 - 0.7 /CUMM) 0.2 Absolute Basophils (0.0 - 0.2 /CUMM) 0 Urines Urine Osmolality (300 - 1000 MOSM/KG) 188 L Ur Random Creatinine (mg/dL) 49.1 Ur Random Sodium (30 - 90 mmol/L) 24 L Ur Random Potassium (mmol/L) 23.1 Fraction Sodium Excret (<1% %) 0.5 Microbiology Date/Time Procedure - Status Source Growth 11/07 0200 Blood Culture - RES BLOOD 11/06 2310 Surveillance Culture - CAN GI Cancelled: SPECIMEN NOT RECEIVED IN LABORATORY 11/06 2300 Surveillance Culture - COMP UPPER RESP 11/06 2106 Urine Culture - RES URINE ROUT GRAM NEGATIVE RODS 11/06 0000 Blood Culture - RES BLOOD General Appearance: Alert, Oriented X3, Cooperative, No Acute Distress Skin Temp/Moisture Exam: Warm/Dry Neck: Supple, No JVD Cardiovascular: Regular Rate, Normal S1, Normal S2, No Murmurs Lungs: Clear to Auscultation, Normal Air Movement Abdomen: Normal Bowel Sounds, Soft, No Tenderness, No Hepatospenomegaly, No Masses Patient is an 82-year-old female with a PMH significant for Chronic yong dz (not on oxygen) former smoker, diabetes mellitus, hypertension, hyperlipidemia, osteoarthritis with chronic back pain, anxiety, depression who presents to the [place] ED with vague complaints of not feeling herself, malaise, Altered behaviour upon admission of improving ISsues Symptomatic Hyponatremia due to polydypsia with a component of siadh Electrolyte abnormality (hyponateria, hypomag, hyperkalemia) UTI, no growing gram-negative rods in the urine NIDDM DEpression Chronic back pain Poly pharmacy CKD Prob sick euthyroid - needs tfts repeated PPI use prob cause of hypomag Sig Hiatal hernia Ex smoker with prob copd not on Severe djd spine with disc dz followed by pain MD Sig chronic vol loss and 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 See psychiatry note Give 1 dose of 1 g IV magnesium today Tylenol if she has any pain Patient still confused she needs to stay in the hospital for physical therapy evaluation Patient might benefit from short-term rehab for medication management
--- NOTE | 2017-11-08 11:53 | Cons- Psychiatry ---
Psychiatric Consult Date of Consult: 11/08/17 Reason for Consult: Assessment of depression History of Present Illness: The patient is an 82-year-old female who was admitted 11/06 with confusion secondary to hyponatremia. The patient had a CVA a few months ago. She currently has UTI. The patient's medical team reports that the patient was "anhedonic and lethargic " this morning and request a consult to assess her for depression. The patient has a past history of depression in association with alcohol and benzodiazepine abuse/dependence. These have been in remission for some time. The patient's main complaint is "I got confused, something to do with my sodium ". She is also concerned about intermittent word finding difficulties which she says have gotten worse since she had a CVA earlier this year. She reports this gets worse and she gets anxious. The patient denies being depressed. She enjoys reading and her concentration is good. She was sleeping well until she was hospitalized. Her appetite is is generally good but for the past few days she has been feeling unwell physically and her appetite has been poor. She has been overhydration as "everyone tells you to drink more water during this weather". She is not suicidal or homicidal. The patient reports that this morning she was somewhat flat as she was upset regarding an episode of urinary incontinence and also regarding her confusion overnight into which she has good insight. She denies all psychotic symptoms. Past psychiatric history: The patient was diagnosed with unspecified depressive disorder in the past and has been treated with mirtazapine, Lexapro and laser buspirone. [facility] 2008. She is no history of deliberate self-harm or suicide attempts. She reports that she no longer takes antidepressant medications although she cannot say when she stopped them. Substance abuse history: The patient has a history of alcohol and benzodiazepine dependence. These have been in remission for several years. Social and personal: The patient lives alone. She has someone who comes in daily to help her as well as a weekly cleaning lady. She has 2 daughters 1 of whom lives across the street and 1 of whom lives in [place]. She talks them every day and sees them regularly. She also has grandchildren who live across the street and who she enjoys seeing. The patient has friends and sees them "when I can". She does not have the financial means to accompany her friends on trips but says "I am not upset about it, it is just the way it is". Her mobility was limited following her CVA and she longer gets as as much as she used to. She has been for several years. She is unsure of the year her . Allergies: Coded Allergies: Penicillins (Mild, RASH 06/25/15) Current Medications: Med Atorvastatin Calcium 5 MG PO 1700 11/07/17 1700 Buspirone HCl 5 MG PO BID 11/07/17 2100 Calcium 600 MG PO DAILY 11/07/17 0900 Escitalopram Oxalate 20 MG PO DAILY 11/07/17 1430 Hyoscyamine 0.125 MG PO TIDPRN PRN 11/07/17 1415 Insulin Aspart SC TIDAC 11/07/17 0800 Lisinopril 10 MG PO DAILY 11/07/17 0900 Magnesium Oxide 400 MG PO DAILY 11/07/17 0900 Metoprolol Tartrate 25 MG PO DAILY 11/07/17 0900 Multivitamins Therapeutic 1 TAB PO DAILY 11/07/17 0900 Past History Past Medical History Neurological: CVA SLIGHT L WEAKNESS EENT: cataracts, macular degeneration Cardiovascular: hypertension, hyperlipidemia, LOW MAGNESIUM Respiratory: pneumonia Gastrointestinal: lower GI bleed, ACID REFLUX ischemic colitis Hepatic: NONE Renal: NONE Musculoskeletal: chronic back pain Psychiatric: depression Endocrine: diabetes Blood Disorders: NONE Cancer(s): NONE 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 Reason for Treatment Alcohol dependence, benzodiazepine dependence, de[pression Dates of Treatment inpatient 2009 Substance Abuse Treatment Comments: History of alcohol and benzodiazepine dependence. In sustained full remission. Assessment/Plan Mental Status Orientation: Person, Place, Situation Mental Status Exam: The patient is an extremely pleasant thin 82-year-old female of slight build. She was well groomed. She was alert and oriented 3. Gait was not assessed. Eye contact was good. Speech was normal in rate, volume and tone. Evidence of occasional word finding difficulties. She described her mood is anxious and her affect was mood congruent. She was not suicidal or homicidal. Thought process was normal in tempo, stream and form with no delusions or obsessions. Attention and concentration were good. There is no perceptual abnormality. Impulse control is good. Patient's intelligence level is average, fund of knowledge average, use of language appropriate. As mentioned there is evidence of word finding difficulties. The patient is subjectively aware of this. There is some deficits and remote memory such as the year of her 's and her children's ages. Recent memory is fair. Consciousness is clear. The patient's insight is good. Judgment is unimpaired. Lab Results: Lab Anion Gap 12 11/08/17 0632 BUN 14 mg/dL 11/08/17 0632 Carbon Dioxide 23 mmol/L 11/08/17 0632 Chloride 97 mmol/L L 11/08/17 0632 Creatinine 1.2 mg/dL H 11/08/17 0632 Estimated GFR 43 ml/min L 11/08/17 0632 Free T4 1.31 ng/dL 11/06/17 2315 Potassium 5.0 mmol/L 11/08/17 0632 Sodium 133 mmol/L L 11/08/17 0632 TSH 6.920 uIU/mL H 11/06/17 2315 Hct 36.6 % L 11/08/17 0632 Hgb 12.1 G/DL 11/08/17 0632 MCH 31.6 PG H 11/08/17 0632 Plt Count 293 /CUMM 11/08/17 0632 RBC 3.84 /CUMM L 11/08/17 0632 WBC 9.7 /CUMM 11/08/17 0632 Ur Leukocyte Esterase LARGE H 11/06/172105 Ur Microscopic SEDIMENT EXAMINED 11/06/172105 Ur Random Creatinine 49.1 mg/dL 11/06/172100 Ur Random Sodium 24 mmol/L L 11/06/172100 Ur Specific [place] 1.010 11/06/172105 Urine Bacteria MANY H 11/06/172105 Urine Clarity HAZY H 11/06/172105 Urine Color YEL 11/06/172105 Urine Ketones NEG 11/06/172105 Urine Nitrite NEG 11/06/172105 Urine Osmolality 188 MOSM/KG L 11/06/172100 Urine Protein NEG MG/DL 11/06/172105 Urine WBC > 75 /HPF H 11/06/172105 Diffential Diagnosis: Unspecified anxiety disorder History of unspecified depressive disorder History of alcohol dependence currently in remission History of benzodiazepine dependence currently in remission 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 She has a history of anxiety disorder and is currently on buspirone. It is unclear whether she has been taking antidepressants. Provisional Treatment Plan: I note the medical team has recommenced her antidepressants. It is unclear when the patient last took this medication. She herself says she has not taken it for several months and her med rec indicates she last took them in July of this year. I been unable to get any information from her pharmacy of record. I have tried to call her primary care doctor several times to no avail. I would caution against recommencing t her antidepressant medication if she has not been taking it, particularly Lexapro which can cause hyponatremia. Also if she has not been taking mirtazapine I would suggest caution about reintroducing it at 45 mg. I suggest continuing buspirone and increasing the dose to 5 mg p.o. 3 times daily. This will help with her anxiety. Psychiatry will sign off for now please reconsult if we can be of any further assistance.
[2017-11-08 16:00] VITALS: BP 120/72
[2017-11-08 23:15] VITALS: BP 110/60
[2017-11-09 07:36] VITALS: BP 130/74
--- NOTE | 2017-11-09 10:10 | PN- Housestaff ---
Subjective Follow-up For: UTI electrolyte abnormalities metabolic encephalopathy Complaints: no complaints Subjective: Patient states she feels better and has no complaints. Denies fever, chills, n/ v/d, chest pain, SOB, abdominal pain, dysuria, hematuria. Review of Systems Constitutional: Reports: see HPI. Objective Last 24 Hrs of Vital Signs/I&O Vital Signs Date Time Temp Pulse Resp B/P B/P Pulse O2 O2 Flow FiO2 Mean Ox Delivery Rate 11/09 0816 85 130/74 11/09 0815 85 130/74 11/09 0736 97.7 85 18 130/74 93 11/08 2315 98.1 82 23 110/60 94 11/08 1600 98.0 74 20 120/72 97 Room Air Intake & Output 11/09 1600 11/09 0800 11/09 0000 Intake Total 240 200 Output Total 350 300 Balance -110 -100 Intake, Oral 240 200 Output, Urine 350 300 Physical Exam General Appearance: Alert, Oriented X3, Cooperative, No Acute Distress Skin: No Rashes Skin Temp/Moisture Exam: Warm/Dry HEENT: Atraumatic, PERRLA Neck: Supple Cardiovascular: Regular Rate, Normal S1, Normal S2 Lungs: Clear to Auscultation Abdomen: Normal Bowel Sounds, Soft, No Tenderness Extremities: No Edema, Normal Pulses Assessment/Plan Assessment: 82 y/o F with PMH significant for COPD (not on home o2), DM, HTN, HLD, OA and depression, who came into the ED because of bizarre behaviour and a feeling of uneasiness on the chest. Pt is indepent at baseline on her ADLs and living alone with her daughters checking on her. On the ED, she was found to be hyponatremic, hyperkalemic, and a BUN/Cr of 16/1.4 with negative trop; she was also found to have a UA concerning for UTI. She was admitted to the unit as a tele hold for management of multiple electrolyte abnormalities. IMPRESSION #Metabolic Encephalopathy #Multiple electrolyte abnormalities #UTI #H/o DM #H/o Depression #LANE Cr. 1.4 #Metabolic Encephalopathy: most like hyponatremia induced, Na level on admission was 125. 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 Na is trending upwards, 133 today. Plan: -continue fluid restrictions - hold Lexapro, as it is likely contributing to HypoNatremia #Multiple electrolyte abnormalities Pt was found to be hyponatremic on admission, with a Na of 125. She was placed on fluid restriction, Na slowly trending up (126->130); magnessium was replaced (1.1->2.0) and potassium trended down to 4.6. Hyponatremia likely due to SIADH as per urine lytes and osm studies. PPI will be held, likely cause of magnessium depletion -Continue fluid restriction: 1200cc/day -F/u BEP: Na 133 this morning #UTI 2/2 Klebsiella pneumoniae UA positive for leuk esterase, wbc and bacteria. Pt was started on IV ceftriaxone after cultures were taken. -F/u cultures -Cont. Ceftriaxone day 4/5 of a 5 day treatment course #H/o DM Patient with a history of DM. Latest bedside glucoses have been between 80-107. Pt on a Consistent Carbohydrate 3 diet, on [employer] ISS. -bedside glucose monitoring with meals -novolog ISS #H/o depression and anxiety - d/c lexapro and mirtazaprine - increase Buspirone 5mg PO TID, per Psych rec's. Input is highly appreciated #hypertension: - Continue Metoprolol 25mg - Lisinopril 10mg #hyperlipidema - Lipitor 5mg #LANE on admission Cr 1.4 -resolving; currently Cr 1.1 -continue to monitor DVT PPx: Heparin Diet: Carbohydrate III Code Status: DNR/DNI Problem List: 1. Hyponatremia 2. Acute kidney injury 3. UTI (urinary tract infection) Pain Ratin Pain Location: none Pain Goal: Remain pain free Pain Plan: see a/p Tomorrow's Labs & Rationales: bep
--- NOTE | 2017-11-09 12:09 | PN- Pulmonary ---
Subjective HPI/Critical Care Issues: Doing much better Afebrile Did walk around the hallway Sodium seems to be stable Daughter is willing to take her home and stay with her over the weekend Objective Current Medications: Current Medications Sig/Jv Start time Last Medication Dose Route Stop Time Status Admin Acetaminophen 500 MG Q6P PRN 11/06 2345 AC PO Atorvastatin Calcium 5 MG 1700 11/07 1700 AC 11/08 PO 1800 Buspirone HCl 5 MG TID 11/08 1400 AC 11/09 PO 0816 Buspirone HCl 5 MG BID 11/07 2100 DC 11/08 PO 0906 Calcium 600 MG DAILY 11/07 0900 AC 11/09 PO 0814 Ceftriaxone Sodium 1,000 MG 2300 11/06 2300 AC 11/08 IV 2113 Escitalopram Oxalate 20 MG DAILY 11/07 1430 DC 11/08 PO 0906 Heparin Sodium 5,000 UNIT Q8 11/07 0600 AC 11/09 (Porcine) SC 0542 Hyoscyamine 0.125 MG TIDPRN PRN 11/07 1415 AC PO Insulin Aspart 0 TIDAC 11/07 0800 AC SC Lisinopril 10 MG DAILY 11/07 0900 AC 11/09 PO 0815 Magnesium Oxide 400 MG DAILY 11/07 0900 AC 11/09 PO 0815 Metoprolol Tartrate 25 MG DAILY 11/07 0900 AC 11/09 PO 0816 Mirtazapine 7.5 MG AT BEDTIME 11/08 2100 AC 11/08 PO 2115 Multivitamins 1 TAB DAILY 11/07 0900 AC 11/09 Therapeutic PO 0816 Patient Medication 1 ED ONE ONE 11/08 1600 [place] Teaching ED 11/08 1601 Vital Signs & I&O Last 24 Hrs of Vitals and I&O: Vital Signs Date Time Temp Pulse Resp B/P B/P Pulse O2 O2 Flow FiO2 Mean Ox Delivery Rate 11/09 0816 85 130/74 11/09 0815 85 130/74 11/09 0736 97.7 85 18 130/74 93 11/08 2315 98.1 82 23 110/60 94 11/08 1600 98.0 74 20 120/72 97 Room Air Intake & Output 11/09 1600 11/09 0800 11/09 0000 Intake Total 240 200 Output Total 350 300 Balance -110 -100 Intake, Oral 240 200 Output, Urine 350 300 Impression/Plan Impression/Plan Impression/Plan: General Appearance: Alert, Oriented X3, Cooperative, No Acute Distress Skin Temp/Moisture Exam: Warm/Dry Neck: Supple, No JVD Cardiovascular: Regular Rate, Normal S1, Normal S2, No Murmurs Lungs: Clear to Auscultation, Normal Air Movement Abdomen: Normal Bowel Sounds, Soft, No Tenderness, No Hepatospenomegaly, No Masses Patient is an 82-year-old female with a PMH significant for Chronic yong dz (not on oxygen) former smoker, diabetes mellitus, hypertension, hyperlipidemia, osteoarthritis with chronic back pain, anxiety, depression who presents to the [facility] ED with vague complaints of not feeling herself, malaise, Altered behaviour upon admission of improving ISsues Symptomatic Hyponatremia due to polydypsia with a component of siadh with uti Electrolyte abnormality (hyponateria, hypomag, hyperkalemia), improving UTI, with klebsiella NIDDM DEpression Chronic back pain Poly pharmacy CKD stage 2 and with mild natalie now better Prob sick euthyroid - needs tfts repeated in 2 weeks upon dc PPI use prob cause of hypomag Sig Hiatal hernia Ex smoker with prob copd not on oxygen Severe djd spine with disc dz followed by pain MD Sig chronic vol loss and chronic 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 David and her pain medication MD and should have thyroid function test done in 2 weeks Daughter and the patient wishes to go home. We will discharge her home per patient wishes
--- NOTE | 2017-11-09 13:33 | Patient Discharge Instructions ---
Discharge Instructions General Discharge Information You were seen/treated for: UTI, hyponatremia Watch for these problems: Fever, chest pain, shortness of breath Special Instructions: Please take all medications as directed. Please follow-up with primary care. Diet Continue normal diet: Yes Activity Full Activity/No Limits: Yes Acute Coronary Syndrome Inclusion Criteria At DC or during hospital stay patient has or had the following: ACS DIAGNOSIS No Discharge Core Measures Meds if any: Prescribed or Continued at Discharge Meds if any: NOT Prescribed or Continued at Discharge Congestive Heart Failure Inclusion Criteria At DC or during hospital stay patient has or had the following: CHF DIAGNOSIS No Discharge Core Measures Meds if any: Prescribed or Continued at Discharge Meds if any: NOT Prescribed or Continued at Discharge Cerebrovascular accident Inclusion Criteria At DC or during hospital stay patient has or had the following: CVA/TIA Diagnosis No Discharge Core Measures Meds if any: Prescribed or Continued at Discharge Meds if any: NOT Prescribed or Continued at Discharge Venous thromboembolism Inclusion Criteria VTE Diagnosis No VTE Type NONE VTE Confirmed by (Test) NONE Discharge Core Measures - Per Current guidelines, there needs to be overlap - treatment for the first 5 days of Warfarin therapy. - If discharged on Warfarin prior to 5 days of - overlap therapy, the patient will need to be - assessed for post discharge needs including - *Post discharge parental anticoagulation - *Warfarin and/or parental anticoagulation education - *Follow up date to check INR post discharge At least 5 days overlap therapy as Inpatient No Meds if any: Prescribed or Continued at Discharge Note: Overlap Therapy is Warfarin and Anticoagulant Meds if any: NOT Prescribed or Continued at Discharge
[2017-11-09] MEDS ORDERED: CEFUROXIME500 MG PO (13:54)
[2017-11-09 14:58] VITALS: BP 92/66
== END 2017-11-09 16:50 | DRG 643 ==
LOC: ERH 17:04 → 2NB 20:38 → CRI 20:38 → ERHI 20:38 → EDBEDREQ 21:34 → ENRESERV 21:35 → ENTRNSPT 21:59 → EDTRNSPT 22:06 → EDTRNSPTSTS 22:06 → CRI 22:08 → 2NA 22:12 → CMPTRNSPT 22:27 → CRI 23:00 → ENTRNSPT 11-07 14:47 → DELTRNSPT 11-07 14:47 → EDTRNSPT 11-07 14:48 → EDTRNSPTSTS 11-07 15:01 → EDTRNSPT 11-07 15:01 → 2NB 11-07 15:10 → CMPTRNSPT 11-07 15:15 → 2NB 11-08 13:19 → ENPENDDIS 11-09 13:29 → ENTRNSPT 11-09 16:33 → EDTRNSPT 11-09 16:44 → EDTRNSPTSTS 11-09 16:44 → 2NB 11-09 16:50 → CMPTRNSPT 11-09 16:56
PROVIDERS: Emergency Medicine; Preventive Medicine Public Health & General Preventive Medicine; Student in an Organized Health Care Education/Training Program
DX: E22.2 Syndrome of inappropriate secretion of antidiuretic hormone (principal); G93.41 Metabolic encephalopathy; I69.354 Hemiplegia and hemiparesis following cerebral infarction affecting left non-dominant side; N17.9 Acute kidney failure, unspecified; N39.0 Urinary tract infection, site not specified; E11.22 Type 2 diabetes mellitus with diabetic chronic kidney disease; E83.42 Hypomagnesemia; E87.5 Hyperkalemia; J44.9 Chronic obstructive pulmonary disease, unspecified; F03.90 Unspecified dementia, unspecified severity, without behavioral disturbance, psychotic disturbance, mood disturbance, and anxiety; B96.1 Klebsiella pneumoniae [K. pneumoniae] as the cause of diseases classified elsewhere; F41.9 Anxiety disorder, unspecified; I12.9 Hypertensive chronic kidney disease with stage 1 through stage 4 chronic kidney disease, or unspecified chronic kidney disease; E78.5 Hyperlipidemia, unspecified; Z88.0 Allergy status to penicillin; F32.9 Major depressive disorder, single episode, unspecified; G89.29 Other chronic pain; K21.9 Gastro-esophageal reflux disease without esophagitis; M54.9 Dorsalgia, unspecified; N18.2 Chronic kidney disease, stage 2 (mild); R63.1 Polydipsia; K44.9 Diaphragmatic hernia without obstruction or gangrene; M47.9 Spondylosis, unspecified; Z87.891 Personal history of nicotine dependence; Z90.49 Acquired absence of other specified parts of digestive tract; Z79.84 Long term (current) use of oral hypoglycemic drugs
CPT/HCPCS: 2NBP; 84133; 84300; CCU; 36415; 36592; 71046; 81001; 82436; 82570; 87040; 87086; 93005; 93010; 96365; 96366; J0610; J0696; J1644